=== PATIENT | female | born 1940 | race Caucasian/White ===

== ENCOUNTER 2024-06-06 07:50 | Inpatient (IN) ==
[2024-06-06 09:48] LABS: BASOPHILS # (AUTO) 0.1 X10^3/uL (0.0-0.1); BASOPHILS % (AUTO) 0.7 % (0.2-1.0); EOSINOPHILS # (AUTO) 0.1 x10^3/uL (0.0-0.2); EOSINOPHILS % (AUTO) 1.1 % (0.9-2.9); HEMATOCRIT 40.8 % (36.0-47.0); HEMOGLOBIN 13.6 g/dL (12.0-16.0); LYMPHOCYTES # (AUTO) 2.9 X10^3/uL (1.3-2.9); LYMPHOCYTES % (AUTO) 30.3 % (21.0-51.0); MEAN CORPUSCULAR HEMOGLOBIN 32.5 pg (27.0-34.0); MEAN CORPUSCULAR HGB CONC 33.3 g/dL (33.0-35.0); MEAN CORPUSCULAR VOLUME 97.5 fL (80.0-100.0); MEAN PLATELET VOLUME 9.2 fL (7.4-11.0); MONOCYTES # (AUTO) 0.6 x10^3/uL (0.3-0.8); MONOCYTES % (AUTO) 6.1 % (0.0-13.0); NEUTROPHILS # (AUTO) 5.9 x10^3/uL (2.2-4.8); NEUTROPHILS % (AUTO) 61.8 % (42.0-75.0); PLATELET COUNT 161 X10^3/uL (150.0-450.0); RED BLOOD COUNT 4.18 X10^6/uL (3.5-5.4); RED CELL DISTRIBUTION WIDTH 13.7 % (11.6-16.5); WHITE BLOOD COUNT 9.5 X10^3/uL (3.6-10.0)
[2024-06-06 09:59] LABS: ALANINE AMINOTRANSFERASE 21 Units/L (12-78); ALBUMIN 2.9 g/dL (3.4-5.0); ALKALINE PHOSPHATASE 71 Units/L (46-116); ASPARTATE AMINO TRANSFERASE 15 Units/L (15-37); BLOOD UREA NITROGEN 18 mg/dL (7-18); CALCIUM 8.5 mg/dL (8.5-10.1); CARBON DIOXIDE 22.8 mmol/L (21-32); CHLORIDE 103 mmol/L (98-107); COR CA(FOR HYPOALB) 9.4 mg/dL (8.5-10.1); COR NA(FOR HYPERGLY) 136 mmol/L (136-145); CREATININE 0.57 mg/dL (0.55-1.02); GLUCOSE 124 mg/dL (65-99); POTASSIUM 3.5 mmol/L (3.5-5.1); SODIUM 135 mmol/L (136-145); eGFR NON BLACK RACES > 60 (>60)
[2024-06-06] MEDS ORDERED: VOLTAREN 1 % GEL MULTI DOSE TUBE TOP PRN (10:44)
[2024-06-06] MEDS ORDERED: ILOTYCIN OPHTH OINT AFFEYE PRN (10:50)
[2024-06-06] MEDS ORDERED: ZOFRAN TAB 4 MG PO PRN (10:55)
[2024-06-06] MEDS: REGLAN TAB 5 MG PO SCH (12:19)
[2024-06-06] MEDS: LR 1,000 ML IV 1,000 ML IV SCH (12:47)
--- NOTE | 2024-06-06 13:15 | DR.H&P ---
H&P History & Physical for Day of: H&P Date: 06/06/24 Chief Complaint Chief Complaint: increasing pain botjh legs at rest with non - healing wound to the right 2nd toe , multiple pain medications tried for pain but only IV narcotics help with the pain. History of Present Illness History of Present Illness: 84 year old female currently resides at a [facility] facility who has severe ischemia of both extremities and non - heali g wound to the right second toe that has failed intensive wound care therapy including antibiotics antibiotics and alginate type dressings which supplanted wound care dressings with wet to dry dressings previously as well as Betadine dressings . Patient admitted for evaluation and probable urgent intervention of arterial blood flow both legs . Past Medical History Past Medical History: CVA (TIAs actually), Depression, Diabetes and Renal Disease Additional Medical History: Hx of breast cancer, Hx of stomach cancer and both have had surgery Past Surgical History Surgical History: Abdominal Surgery and Mastectomy Family History Family Medical History: Diabetes Mellitus and Cancer Social History Does patient currently use any type of tobacco product: No Have you used tobacco products in the last 12 months: No Type of Tobacco Use: None Alcohol Use: None Drug Use: None Medications Home Medications: Home Medications Medication Instructions Recorded Confirmed Type ascorbic acid (vitamin C) 500 mg 500 mg PO QDAY 06/06/24 06/06/24 History tablet (Vitamin C) atorvastatin 80 mg tablet 80 mg PO QDAY 06/06/24 06/06/24 History carvedilol 6.25 mg tablet 6.25 mg PO BID 06/06/24 06/06/24 History cholecalciferol (vitamin D3) 1,250 1,250 mcg PO QWEEK 06/06/24 06/06/24 History mcg (50,000 unit) capsule cyanocobalamin (vitamin B-12) 1,000 mcg subcut QWEEK 06/06/24 06/06/24 History 1,000 mcg/mL injection kit diclofenac sodium 1 % topical gel 4 g topical QID 06/06/24 06/06/24 History donepezil 10 mg tablet 10 mg PO QDAY 06/06/24 06/06/24 History duloxetine 20 mg capsule,delayed 20 mg PO QDAY 06/06/24 06/06/24 History release erythromycin 5 mg/gram (0.5 %) eye 1 applic ophthalmic (eye) HS PRN 06/06/24 06/06/24 History ointment hordeolum famotidine 20 mg tablet 20 mg PO QDAY 06/06/24 06/06/24 History ferrous sulfate 325 mg (65 mg 325 mg PO BID 06/06/24 06/06/24 History iron) tablet guaifenesin 100 mg/5 mL oral syrup 200 mg PO Q6H 06/06/24 06/06/24 History hydrocodone 5 mg-acetaminophen 325 1 tab PO TID PRN 06/06/24 06/06/24 History mg tablet insulin lispro 100 unit/mL See Rx Instructions .Route .COMPLEX 06/06/24 06/06/24 History subcutaneous pen (Humalog KwikPen (U-100) Insulin) lorazepam 0.5 mg tablet 0.5 mg PO QDAY 06/06/24 06/06/24 History megestrol 40 mg tablet 40 mg PO BID 06/06/24 06/06/24 History metformin 1,000 mg tablet 1,000 mg PO BID 06/06/24 06/06/24 History methenamine hippurate 1 gram tablet 1 g PO BID 06/06/24 06/06/24 History metoclopramide HCl 5 mg tablet 5 mg PO TID 06/06/24 06/06/24 History mv-mn-folic 200 mcg-vit K 15 1 cap PO DAILY 06/06/24 06/06/24 History mcg-lutein 5 mg-zeaxanthin 1 mg capsule (PreserVision AREDS 2 Plus Multivit) ondansetron HCl 4 mg tablet 4 mg PO Q8H PRN 06/06/24 06/06/24 History potassium chloride 10 mEq 10 meq PO QDAY 06/06/24 06/06/24 History tablet,extended release(part/cryst) ropinirole 0.25 mg tablet 0.25 mg PO QDAY 06/06/24 06/06/24 History topiramate 200 mg tablet 200 mg PO BID 06/06/24 06/06/24 History zinc 50 mg tablet 50 mg PO QDAY 06/06/24 06/06/24 History Allergies Allergies Allergy/AdvReac Type Severity Reaction Status Date / Time ciprofloxacin [Cipro] Allergy Unknown Verified 03/07/22 13:15 coconut Allergy Unknown Verified 06/06/24 12:28 gatifloxacin [Tequin] Allergy Unknown Verified 03/07/22 13:15 lettuce Allergy Unknown Verified 06/06/24 12:28 levofloxacin [Levaquin] Allergy Unknown Verified 03/07/22 13:15 onion Allergy Unknown Verified 06/06/24 12:28 pineapple Allergy Unknown Verified 06/06/24 12:28 strawberry Allergy Unknown Verified 03/07/22 13:16 Labs 06/06/24 09:30 06/06/24 09:30 Labs: Laboratory WBC 9.5 X10^3/uL (3.6-10.0) 06/06/24 09:30 RBC 4.18 X10^6/uL (3.5-5.4) 06/06/24 09:30 Hgb 13.6 g/dL (12.0-16.0) 06/06/24 09:30 Hct 40.8 % (36.0-47.0) 06/06/24 09:30 MCV 97.5 fL (80.0-100.0) 06/06/24 09:30 MCH 32.5 pg (27.0-34.0) 06/06/24 09:30 MCHC 33.3 g/dL (33.0-35.0) 06/06/24 09:30 RDW 13.7 % (11.6-16.5) 06/06/24 09:30 Plt Count 161 X10^3/uL (150.0-450.0) 06/06/24 09:30 MPV 9.2 fL (7.4-11.0) 06/06/24 09:30 Neut % (Auto) 61.8 % (42.0-75.0) 06/06/24 09:30 Lymph % (Auto) 30.3 % (21.0-51.0) 06/06/24 09:30 [place] % (Auto) 6.1 % (0.0-13.0) 06/06/24 09:30 Eos % (Auto) 1.1 % (0.9-2.9) 06/06/24 09:30 Baso % (Auto) 0.7 % (0.2-1.0) 06/06/24 09:30 Neut # (Auto) 5.9 x10^3/uL (2.2-4.8) H 06/06/24 09:30 Lymph # (Auto) 2.9 X10^3/uL (1.3-2.9) 06/06/24 09:30 [place] # (Auto) 0.6 x10^3/uL (0.3-0.8) 06/06/24 09:30 Eos # (Auto) 0.1 x10^3/uL (0.0-0.2) 06/06/24 09:30 Baso # (Auto) 0.1 X10^3/uL (0.0-0.1) 06/06/24 09:30 Absolute Nucleated RBC 0.1 /100WBC 06/06/24 09:30 Sodium 135 mmol/L (136-145) L 06/06/24 09:30 Corrected Sodium 136 mmol/L (136-145) 06/06/24 09:30 Potassium 3.5 mmol/L (3.5-5.1) 06/06/24 09:30 Chloride 103 mmol/L (98-107) 06/06/24 09:30 Carbon Dioxide 22.8 mmol/L (21-32) 06/06/24 09:30 BUN 18 mg/dL (7-18) 06/06/24 09:30 Creatinine 0.57 mg/dL (0.55-1.02) 06/06/24 09:30 Est GFR (MDRD) Af Amer > 60 (>60) 06/06/24 09:30 Est GFR (MDRD) Non-Af > 60 (>60) 06/06/24 09:30 Glucose 124 mg/dL (65-99) H 06/06/24 09:30 POC Glucose (mg/dL) 110 mg/dL (65-99) H 06/06/24 12:37 Calcium 8.5 mg/dL (8.5-10.1) 06/06/24 09:30 Corrected Calcium 9.4 mg/dL (8.5-10.1) 06/06/24 09:30 Total Bilirubin 0.50 mg/dL (0.2-1.0) 06/06/24 09:30 AST 15 Units/L (15-37) 06/06/24 09:30 ALT 21 Units/L (12-78) 06/06/24 09:30 Alkaline Phosphatase 71 Units/L (46-116) 10/21/24 09:30 Total Protein 6.0 g/dL (6.4-8.2) L 06/06/24 09:30 Albumin 2.9 g/dL (3.4-5.0) L 06/06/24 09:30 Globulin 3.1 g/dL (2.5-4.5) 06/06/24 09:30 Albumin/Globulin Ratio 0.9 Ratio (1.1-2.1) L 06/06/24 09:30 Review of Systems Constitutional: See HPI Eyes: Other (dry eyes ) ENT: No Symptoms Reported Respiratory: No Symptoms Reported Cardiovascular: No Symptoms Reported and See HPI Gastrointestinal: See HPI Genitourinary: No Symptoms Reported Musculoskeletal: No Symptoms Reported Skin: See HPI Neurological: No Symptoms Reported Physical Exam Vital Signs: Vital Signs Temperature 97.4 F Pulse Rate [Left Radial] 62 Respiratory Rate 18 Blood Pressure [Right Arm] 172/73 O2 Sat by Pulse Oximetry 100 Oriented: Person and Other (patient is bed bound , family does not want this to end with amputqtion) Eyes: Normal Ear: Normal Nose: Normal Throat: Normal Respiratory: Clear Throughout Cardiovascular: Normal and Other (2 plus femoral pulses by palpation absent pulses both ankles ) : Normal Palpation: Normal and Other (healed midline incision ) Tenderness: Normal Skin: Normal Musculoskeletal: Normal Psychiatric: Anxiety Mood Description: Calm Affect: Anxious Speech Pattern: Appropriate and Delayed Assessment/Plan (1) 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
[2024-06-06] MEDS: OMNIPAQUE 350 mg/mL 100 mL BTL 100 ML ONE (14:14)
[2024-06-06] MEDS: VITAMIN B-12 INJ IM STA (14:15)
[2024-06-06] MEDS: OMNIPAQUE 350 mg/mL 50 mL BTL 50 ML ONE (14:15)
--- NOTE | 2024-06-06 17:03 | CT ---
EXAM: CTA AORTA WITH RUNOFF HISTORY: non healing wound rt foot ; COMPARISON: None. TECHNIQUE: Initially nonenhanced spiral CT imaging was performed through the abdomen, pelvis, and down to the fe et. Following the intravenous administration of iodinated contrast, spiral CT imaging was performed through the abdomen, pelvis, and bilateral lower extremities and axial, coronal, and sagittal CT imag es were generated. Multi planar 3D MIP images were also generated. FINDINGS: Noncontrast images: There are large nonobstructing stones in both kidneys measuring up to 1.4 cm bila terally. There is severe systemic atherosclerosis. Minimal basilar atelectasis. Heart size is enlarged. The liver is grossly unremarkable. The gallbl adder has been removed. Pancreas is somewhat atrophic. The spleen is normal. There is a left adren al adenoma measuring 2.1 cm in diameter. The renal parenchyma enhances normally. There is no renal mass or hydronephrosis. The urinary bladder is grossly normal. There is a nonobstructing stone in t he right side of the urinary bladder. The uterus has been removed. There is no adnexal mass. The s tomach and small bowel loops are normal. The appendix is not identified. There is no evidence for a ppendicitis. The large bowel is unremarkable. Angiography: There is atherosclerosis in the abdominal aorta but no aneurysm or dissection. There is narrowing at the origin of the celiac trunk and there appears to be poststenotic dilation. The degr ee of stenosis is between 50 and 70%. There is some degree of stenosis of the origin of the SMA. Th ere is unspecified stenosis at the origin of the renal artery bilaterally. There is plaque in the co mmon iliac arteries bilaterally but no flow-limiting stenosis. There is soft plaque in the internal iliac arteries. There is no flow-limiting stenosis in the external iliac arteries. There is heterog eneous plaque in the common femoral artery bilaterally. Right leg: There is diffuse atherosclerosis in the superficial and deep femoral arteries and this dif fuse atherosclerosis extends through the popliteal artery in the anterior tibial artery, tibioperonea l trunk, posterior tibial artery, and peroneal artery. On the postcontrast images there is no defini tive enhancement seen beyond the mid superficial femoral artery. There was a 2nd delayed series from the popliteal artery distally which shows some enhancement in the popliteal artery and none distal t o the popliteal artery. Left leg: There is diffuse atherosclerosis in the left leg similar to the right leg. On the postcont rast images there is no flow seen beyond the mid SFA on the initial post-contrast scan. On the delay ed postcontrast scan there is blood flow in the popliteal artery but no definite flow into the proxim al calf vessels. IMPRESSION: 1. Very weak perfusion pressure into the bilateral lower extremities with no definitive enhancement s een below the popliteal artery. 2. 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 THIS IS AN ELECTRONICALLY VERIFIED FINAL REPORT 06/06/2024 4:59 PM - Electronically signed by Shawn Alcantara MD
[2024-06-06] MEDS: NovoLIN R (or HumuLIN R) SUBCUT PRN (20:23)
[2024-06-06] MEDS: SNACK - Diabetic Appropriate PO SCH (20:24)
[2024-06-06] MEDS: TOPAMAX TAB 100 MG PO SCH (20:25)
[2024-06-06] MEDS: REQUIP PO SCH (20:25)
[2024-06-06] MEDS: ARICEPT TAB 10 MG PO SCH (20:26)
[2024-06-06] MEDS: COREG TAB 6.25 MG PO SCH (20:26)
[2024-06-06] MEDS: MEGACE PO SCH (20:41)
[2024-06-06] MEDS: HIPREX PO SCH (20:49)
--- NOTE | 2024-06-06 23:20 | NOTE.SOAP ---
Soap Note Note for Day of Date of Exam: 06/06/24 Subjective Data Subjective Data: See H& P CTA shows no flow below popliteal arteries b/l . Objective Data Temperature: 98.9 F Pulse Rate: 82 Respiratory Rate: 18 Blood Pressure: 131/66 O2 Sat by Pulse Oximetry: 95 Objective Data: both feet cool to touch, no palpable distal pulses either ankle 1.2x 1.2 x 0.2 cm non- healing wound right second toe dorsal surface . Assessment Assessment: b/l critical ischemia of legs Plan Plan: Aortogram, arteriogram right leg and possible atherectomy, possible angioplasty and possible stenting of arteries right leg. Obtain EKG and portable CXR pre-op
[2024-06-06] MEDS: PERCOCET TAB 5/325 MG PO PRN (23:30)
[2024-06-07] MEDS: HIBICLENS WASH EXT ONE (04:01)
--- NOTE | 2024-06-07 05:32 | RAD ---
EXAM:FRONTAL VIEW CHEST X-RAYHISTORY:Preoperative chest x-rayCOMPARISON:None.FINDINGS:Cervical fusion hardware is noted.Clips along the left axilla are seen which may be from prior lymph node dissection.No focal consolidation is seen.The heart size is within normal limits.The mediastinum is unremarkable.There is no evidence of pleural effusion or gross pneumothorax.The trachea is midline.IMPRESSION:No focal consolidation is seen.The heart size is normal.THIS IS AN ELECTRONICALLY VERIFIED FINAL [id number]/2024 5:28 AM - Electronically signed by Александр Mccarthy MD
--- NOTE | 2024-06-07 06:54 | EKG ---
Test Reason : SURGERY Blood Pressure : */* mmHG Vent. Rate : 66 BPM Atrial Rate : 66 BPM P-R Int : 178 ms QRS Dur : 96 ms QT Int : 450 ms P-R-T Axes : 72 -15 89 degrees QTc Int : 471 ms Normal sinus rhythm Septal infarct , age undetermined Nonspecific ST and T wave abnormality Abnormal ECG No previous ECGs available Confirmed by Ed Smith MD ([id number]) on 06/07/2024 7:30:08 AM Referred By: Confirmed By: Ed Smith MD
[2024-06-07] MEDS: DIPRIVAN VIAL 20 ML ONE (09:09)
[2024-06-07] MEDS: KETAMINE 50 MG/5 ML-NACL SYRNG ONE (09:10)
[2024-06-07] MEDS: PEPCID 20 MG VIAL ONE (09:10)
[2024-06-07] MEDS: VERSED ONE (09:10)
[2024-06-07] MEDS: HEPARIN SODIUM INJ 5000 UNITS ONE (09:10)
[2024-06-07] MEDS: ZOFRAN INJ 4 MG VIAL ONE (09:10)
[2024-06-07] MEDS: LIPITOR TAB 80 MG PO SCH (09:11)
[2024-06-07] MEDS: VITAMIN D3 125 mcg (5,000 UNITS) PO SCH (09:11)
[2024-06-07] MEDS: PROTONIX TAB 40 MG PO SCH (09:11)
[2024-06-07] MEDS: ATIVAN TAB 0.5 MG PO SCH (09:11)
[2024-06-07] MEDS: CYMBALTA PO SCH (09:12)
[2024-06-07] MEDS: KLOR-CON 10 MEQ TAB PO SCH (09:12)
[2024-06-07] MEDS: HEMOCYTE-PLUS PO SCH (09:13)
[2024-06-07] MEDS: VITAMIN C PO SCH (09:13)
[2024-06-07] MEDS: HEPARIN SODIUM IN D5W 75,000 UNITS/1,500 ML BAG ONE (13:05)
[2024-06-07] MEDS: MARCAINE 0.5% ONE (13:05)
[2024-06-07] MEDS: NS 1,000 ML IV 1,000 ML ONE (13:06)
[2024-06-07] MEDS: NS 100 ML IV 100 ML ONE (13:15)
[2024-06-07] MEDS: ANCEF VIAL 1 GRAM ONE (13:15)
[2024-06-07] MEDS ORDERED: PRECEDEX INJ VIAL ONE (13:24)
[2024-06-07] MEDS: VISIPAQUE 50 ML ONE (13:45)
[2024-06-07] MEDS: VISIPAQUE 100 ML ONE (13:45)
--- NOTE | 2024-06-07 14:45 | OR.IMMED ---
IMMEDIATE POST-OP NOTE Immediate Post-Op Note Date of surgery/procedure: 06/07/24 Pre-Op Diagnosis: critical ischemia right leg with non - healing wound right second toe. Post-Op Diagnosis: same Procedure: Diagnostic aortogram, diagnostic arteriogram right leg, balloon angioplasty of the right peroneal artery, drug-coated balloon angioplasty of the right tibial peroneal trunk Description of Procedure: dictated Surgeon/Public Relations Consultant: Rowena Findings: occluded right anterior tibial artery with reconstitution, severe disease right tibial peroneal trunk, severe disease peroneal and posterior tibial arteries Estimated Blood Loss: < 100 cc Complications: none Progress Notes: to floor. Resume diet. begin Xarelto and aspirin
[2024-06-07] MEDS ORDERED: PHARMACY CONSULT LTC MEDICATIONS XX SCH (17:00)
[2024-06-08 04:12] VITALS: BMI 20.4
[2024-06-08 05:03] LABS: BLOOD UREA NITROGEN 11 mg/dL (7-18); CALCIUM 8.5 mg/dL (8.5-10.1); CARBON DIOXIDE 25.6 mmol/L (21-32); CHLORIDE 103 mmol/L (98-107); CREATININE 0.54 mg/dL (0.55-1.02); GLUCOSE 90 mg/dL (65-99); POTASSIUM 3.2 mmol/L (3.5-5.1); SODIUM 137 mmol/L (136-145); eGFR NON BLACK RACES > 60 (>60)
[2024-06-08] MEDS ORDERED: CONSULT PHARMACY - POTASSIUM & MAGNESIUM XX SCH (06:00)
[2024-06-08] MEDS: NS IV ONE (08:43)
[2024-06-08] MEDS: POTASSIUM CHLORIDE IV ONE (08:43)
[2024-06-08] MEDS ORDERED: KLOR-CON PO SCH (09:00)
--- NOTE | 2024-06-08 11:17 | W.DIS.FURT ---
Summary of Discharge Discharge Summary of Date Date of Exam: 06/08/24 Admission Date Date of Admission: 06/06/24 Admission Diagnosis Hospital Course: This patient is a 84 year old female, [facility] Who has non-healing wound over the right second toe. She has had studies consistent with ischemia and was admitted for CT angiogram and intervention as transportation is an issue because of her mobility. She was admitted and underwent CT angiogram and the next day was taken to the operating suite where she underwent balloon angioplasty of the right peroneal artery and Drug coated balloon angioplasty to the right tibial peroneal trunk. Should be noted her anterior tibial artery was occluded. Once the peroneal artery was dilated she had cross filling into the posterior tibial artery and post-procedure had significant biphasci dopler signal in the posterior tibial artery . The wound over the left second toe is 1 cm by 0.4 by 0.1 cm and according to the family is improving. Patient to be [facility] today and I will see here and follow up in 2 weeks. If the wound does not heal will refer her back to Podiatry. 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 Vital Signs: Vital Signs (72 hours) 06/06/24 23:20 06/06/24 08:45 06/06/24 08:03 Temperature 98.9 F Pulse Rate 82 Pulse Rate [Left Radial] Respiratory Rate 18 Blood Pressure 131/66 Blood Pressure [Right Arm] O2 Sat by Pulse Oximetry 95 Oxygen Delivery Method Room Air Room Air Oxygen Flow Rate FIO2% 06/06/24 11:22 06/06/24 08:05 06/06/24 16:00 Temperature 97.4 F L 97.6 F 97.6 F Pulse Rate Pulse Rate [Left Radial] 62 58 L 79 Respiratory Rate 18 20 20 Blood Pressure Blood Pressure [Right Arm] 172/73 143/65 137/73 O2 Sat by Pulse Oximetry 100 98 95 Oxygen Delivery Method Room Air Room Air Room Air Oxygen Flow Rate FIO2% 06/06/24 19:00 06/06/24 20:00 06/06/24 23:30 Temperature 98.9 F Pulse Rate Pulse Rate [Left Radial] 82 Respiratory Rate 18 18 Blood Pressure Blood Pressure [Right Arm] 131/66 O2 Sat by Pulse Oximetry 95 Oxygen Delivery Method Room Air Room Air Oxygen Flow Rate FIO2% 06/07/24 00:00 06/07/24 00:30 06/07/24 04:00 Temperature 98.2 F 97.9 F Pulse Rate Pulse Rate [Left Radial] 78 65 Respiratory Rate 18 16 18 Blood Pressure Blood Pressure [Right Arm] 144/70 155/70 O2 Sat by Pulse Oximetry 97 99 Oxygen Delivery Method Room Air Room Air Oxygen Flow Rate FIO2% 06/07/24 08:00 06/07/24 07:00 06/07/24 12:00 Temperature 97.5 F L 98.3 F Pulse Rate Pulse Rate [Left Radial] 64 67 Respiratory Rate 20 18 Blood Pressure Blood Pressure [Right Arm] 159/74 170/73 O2 Sat by Pulse Oximetry 99 100 Oxygen Delivery Method Room Air Room Air Room Air Oxygen Flow Rate FIO2% 06/07/24 13:19 06/07/24 16:00 06/07/24 14:45 Temperature 98.2 F 98.4 F Pulse Rate 75 Pulse Rate [Left Radial] 57 L 62 Respiratory Rate 18 16 16 Blood Pressure 177/82 Blood Pressure [Right Arm] 145/67 111/55 O2 Sat by Pulse Oximetry 95 100 100 Oxygen Delivery Method Nasal Cannula Room Air Room Air Oxygen Flow Rate FIO2% 06/07/24 15:00 06/07/24 15:15 06/07/24 15:30 Temperature 98.4 F 98.5 F 98.0 F Pulse Rate Pulse Rate [Left Radial] 54 L 58 L 59 L Respiratory Rate 16 16 18 Blood Pressure Blood Pressure [Right Arm] 109/58 147/66 142/65 O2 Sat by Pulse Oximetry 99 100 100 Oxygen Delivery Method Room Air Room Air Room Air Oxygen Flow Rate FIO2% 06/07/24 15:45 06/07/24 16:45 06/07/24 17:45 Temperature 98.2 F 98.2 F 98.2 F Pulse Rate Pulse Rate [Left Radial] 57 L 62 60 Respiratory Rate 16 16 16 Blood Pressure Blood Pressure [Right Arm] 145/67 148/68 159/70 O2 Sat by Pulse Oximetry 100 100 100 Oxygen Delivery Method Room Air Room Air Room Air Oxygen Flow Rate FIO2% 06/07/24 18:45 06/07/24 19:00 06/07/24 19:46 Temperature 97.2 F L 97.7 F Pulse Rate Pulse Rate [Left Radial] 65 60 Respiratory Rate 18 18 Blood Pressure Blood Pressure [Right Arm] 159/72 153/64 O2 Sat by Pulse Oximetry 100 100 Oxygen Delivery Method Room Air Room Air Room Air Oxygen Flow Rate FIO2% 06/07/24 20:34 06/07/24 20:00 06/08/24 00:00 Temperature 98.2 F 98.1 F Pulse Rate Pulse Rate [Left Radial] 76 58 L Respiratory Rate 20 16 19 Blood Pressure Blood Pressure [Right Arm] 162/94 134/64 O2 Sat by Pulse Oximetry 98 99 Oxygen Delivery Method Room Air Room Air Oxygen Flow Rate FIO2% 06/07/24 21:34 06/08/24 04:00 06/08/24 07:50 Temperature 98.0 F 97.4 F L Pulse Rate Pulse Rate [Left Radial] 62 61 Respiratory Rate 20 19 18 Blood Pressure Blood Pressure [Right Arm] 159/72 140/70 O2 Sat by Pulse Oximetry 98 98 Oxygen Delivery Method Room Air Room Air Oxygen Flow Rate FIO2% 06/08/24 07:00 06/08/24 09:42 Temperature Pulse Rate Pulse Rate [Left Radial] Respiratory Rate Blood Pressure Blood Pressure [Right Arm] O2 Sat by Pulse Oximetry Oxygen Delivery Method Room Air Room Air Oxygen Flow Rate 2 FIO2% 28 Labs: Laboratory Last Values WBC 9.5 X10^3/uL (3.6-10.0) 06/06/24 09:30 RBC 4.18 X10^6/uL (3.5-5.4) 06/06/24 09:30 Hgb 13.6 g/dL (12.0-16.0) 06/06/24 09:30 Hct 40.8 % (36.0-47.0) 06/06/24 09:30 MCV 97.5 fL (80.0-100.0) 06/06/24 09:30 MCH 32.5 pg (27.0-34.0) 06/06/24 09:30 MCHC 33.3 g/dL (33.0-35.0) 06/06/24 09:30 RDW 13.7 % (11.6-16.5) 06/06/24 09:30 Plt Count 161 X10^3/uL (150.0-450.0) 06/06/24 09:30 MPV 9.2 fL (7.4-11.0) 06/06/24 09:30 Neut % (Auto) 61.8 % (42.0-75.0) 06/06/24 09:30 Lymph % (Auto) 30.3 % (21.0-51.0) 06/06/24 09:30 [place] % (Auto) 6.1 % (0.0-13.0) 06/06/24 09:30 Eos % (Auto) 1.1 % (0.9-2.9) 06/06/24 09:30 Baso % (Auto) 0.7 % (0.2-1.0) 06/06/24 09:30 Neut # (Auto) 5.9 x10^3/uL (2.2-4.8) H 06/06/24 09:30 Lymph # (Auto) 2.9 X10^3/uL (1.3-2.9) 06/06/24 09:30 [place] # (Auto) 0.6 x10^3/uL (0.3-0.8) 06/06/24 09:30 Eos # (Auto) 0.1 x10^3/uL (0.0-0.2) 06/06/24 09:30 Baso # (Auto) 0.1 X10^3/uL (0.0-0.1) 06/06/24 09:30 Absolute Nucleated RBC 0.1 /100WBC 06/06/24 09:30 Sodium 137 mmol/L (136-145) 06/08/24 04:20 Corrected Sodium TNP 06/08/24 04:20 Potassium 3.2 mmol/L (3.5-5.1) L 06/08/24 04:20 Chloride 103 mmol/L (98-107) 06/08/24 04:20 Carbon Dioxide 25.6 mmol/L (21-32) 06/08/24 04:20 BUN 11 mg/dL (7-18) 06/08/24 04:20 Creatinine 0.54 mg/dL (0.55-1.02) L 06/08/24 04:20 Est GFR (MDRD) Af Amer > 60 (>60) 06/08/24 04:20 Est GFR (MDRD) Non-Af > 60 (>60) 06/08/24 04:20 Glucose 90 mg/dL (65-99) 06/08/24 04:20 POC Glucose (mg/dL) 241 mg/dL (65-99) H 06/08/24 10:46 Calcium 8.5 mg/dL (8.5-10.1) 06/08/24 04:20 Corrected Calcium 9.4 mg/dL (8.5-10.1) 06/06/24 09:30 Total Bilirubin 0.50 mg/dL (0.2-1.0) 06/06/24 09:30 AST 15 Units/L (15-37) 06/06/24 09:30 ALT 21 Units/L (12-78) 06/06/24 09:30 Alkaline Phosphatase 71 Units/L (46-116) 06/06/24 09:30 Total Protein 6.0 g/dL (6.4-8.2) L 06/06/24 09:30 Albumin 2.9 g/dL (3.4-5.0) L 06/06/24 09:30 Globulin 3.1 g/dL (2.5-4.5) 06/06/24 09:30 Albumin/Globulin Ratio 0.9 Ratio (1.1-2.1) L 06/06/24 09:30 Reason For Visit: ATHEROSCLEROSIS OF [place] ARTERIES WITH REST PAIN, Discharge Diagnosis All Active Problems (Updated 06/06/24 @ 13:12 by Bryan Guaman) Gastroparesis (Acute) Anxiety (Acute) Personal history of malignant neoplasm of stomach (Acute) Personal history of breast cancer (Acute) Type 2 diabetes mellitus without complications (Acute) Atherosclerosis of [place] arteries of extremities with rest pain, left leg (Acute) Atherosclerosis of [place] arteries of extremities with rest pain, right leg (Acute) Plan of Treatment: Continue with present treatment and follow up plan. Pt is to keep follow up appointment as instructed and take medications as ordered. Discharge Medications Discharge Medications: ciprofloxacin [Cipro] Allergy (Unknown, Verified 03/07/22 13:15) coconut Allergy (Unknown, Verified 06/06/24 12:28) gatifloxacin [Tequin] Allergy (Unknown, Verified 03/07/22 13:15) lettuce Allergy (Unknown, Verified 06/06/24 12:28) levofloxacin [Levaquin] Allergy (Unknown, Verified 03/07/22 13:15) onion Allergy (Unknown, Verified 06/06/24 12:28) pineapple Allergy (Unknown, Verified 06/06/24 12:28) strawberry Allergy (Unknown, Verified 03/07/22 13:16) CONTINUE taking the following medications ascorbic acid (vitamin C) 500 mg tablet (Vitamin C) 500 mg PO QDAY 06/06/24 [History] atorvastatin 80 mg tablet 80 mg PO QDAY 06/06/24 [History] carvedilol 6.25 mg tablet 6.25 mg PO BID 06/06/24 [History] cholecalciferol (vitamin D3) 1,250 mcg (50,000 unit) capsule 1,250 mcg PO QWEEK 06/06/24 [History] cyanocobalamin (vitamin B-12) 1,000 mcg/mL injection kit 1,000 mcg subcut QWEEK 06/06/24 [History] diclofenac sodium 1 % topical gel 4 g topical QID 06/06/24 [History] donepezil 10 mg tablet 10 mg PO QDAY 06/06/24 [History] duloxetine 20 mg capsule,delayed release 20 mg PO QDAY 06/06/24 [History] erythromycin 5 mg/gram (0.5 %) eye ointment 1 applic ophthalmic (eye) HS PRN hordeolum 06/06/24 [History] famotidine 20 mg tablet 20 mg PO QDAY 06/06/24 [History] ferrous sulfate 325 mg (65 mg iron) tablet 325 mg PO BID 06/06/24 [History] guaifenesin 100 mg/5 mL oral syrup 200 mg PO Q6H 06/06/24 [History] hydrocodone 5 mg-acetaminophen 325 mg tablet 1 tab PO TID PRN 06/06/24 [History] insulin lispro 100 unit/mL subcutaneous pen (Humalog KwikPen (U-100) Insulin) See Rx Instructions .Route .COMPLEX 06/06/24 [History] lorazepam 0.5 mg tablet 0.5 mg PO QDAY 06/06/24 [History] megestrol 40 mg tablet 40 mg PO BID 06/06/24 [History] metformin 1,000 mg tablet 1,000 mg PO BID 06/06/24 [History] methenamine hippurate 1 gram tablet 1 g PO BID 06/06/24 [History] metoclopramide HCl 5 mg tablet 5 mg PO TID 06/06/24 [History] mv-mn-folic 200 mcg-vit K 15 mcg-lutein 5 mg-zeaxanthin 1 mg capsule (PreserVision AREDS 2 Plus Multivit) 1 cap PO DAILY 06/06/24 [History] ondansetron HCl 4 mg tablet 4 mg PO Q8H PRN 06/06/24 [History] potassium chloride 10 mEq tablet,extended release(part/cryst) 10 meq PO QDAY 06/06/24 [History] ropinirole 0.25 mg tablet 0.25 mg PO QDAY 06/06/24 [History] topiramate 200 mg tablet 200 mg PO BID 06/06/24 [History] zinc 50 mg tablet 50 mg PO QDAY 06/06/24 [History] Discharge Disposition Assessment: see hospital course Discharge Plan Discharge Plan Hospital Course: This patient is a 84 year old female, [facility] Who has non-healing wound over the right second toe. She has had studies consistent with ischemia and was admitted for CT angiogram and intervention as transport ation is an issue because of her mobility. She was admitted and underwent CT angiogram and the next day was taken to the operating suite where she underwent balloon angioplasty of the right peroneal artery and Drug coated balloon angioplasty to the right tibial peroneal trunk. Should be noted her anterior tibial artery was occluded. Once the peroneal artery was dilated she had cross filling into the posterior tibial artery and post-procedure had significant biphasci dopler signal in the posterior tibial artery . The wound over the left second toe is 1 cm by 0.4 by 0.1 cm and according to the family is improving. Patient to be [facility] to [facility] today and I will see here and follow up in 2 weeks. If the wound does not heal will refer her back to Podiatry. 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 Patient Disposition: 03 XFER SN[facility] Condition: Stable Health Concerns: Post Hospitalization: new medications and changes needed to prevent readmission or further decline. Pt educated and given instructions on all concerns. Care Plan Goals: Problem: Pain/Alteration in Comfort Goal: Improve/ Resolve Pain; Achieve Pain Tolerance Instructions: Take pain medications as prescribed. Contact your primary care provider if your pain is unrelieved or worsens. Follow up with primary care provider as directed. Plan of Treatment: Continue with present treatment and follow up plan. Pt is to keep follow up appointment as instructed and take medications as ordered. Assessment: see hospital course Prescription drug monitoring program results: PDMP was not reviewed Prescriptions: No Action atorvastatin 80 mg tablet 80 mg PO QDAY carvedilol 6.25 mg tablet 6.25 mg PO BID hydrocodone-acetaminophen 5-325 mg tablet 1 tab PO TID PRN donepezil 10 mg tablet 10 mg PO QDAY ondansetron HCl 4 mg tablet 4 mg PO Q8H PRN famotidine 20 mg tablet 20 mg PO QDAY lorazepam 0.5 mg tablet 0.5 mg PO QDAY metoclopramide HCl 5 mg tablet 5 mg PO TID ropinirole 0.25 mg tablet 0.25 mg PO QDAY erythromycin 5 mg/gram (0.5 %) ointment 1 applic OPHTHALMIC (EYE) HS PRN (Reason: hordeolum) Patient Comments: [NO ORIGINAL SIG] metformin 1,000 mg tablet 1,000 mg PO BID megestrol 40 mg tablet 40 mg PO BID topiramate 200 mg tablet 200 mg PO BID insulin lispro [Humalog KwikPen Insulin] 100 unit/mL insulin pen See Rx Instructions .ROUTE .COMPLEX Patient Comments: [NO ORIGINAL SIG] Rx Instructions: Inject as per sliding scale : if 0-59 = 0 responsive=give instaglucose tabs or gel; unresponsive=Glucagen IM. Notify .; 60-180 = 0 181-220 = 4 221-260 = 6 261-300 = 8 301-350 = 10 351-400 = 12 401-1000 = 12; Notifprice [place] subcutaneously four time a day for DM duloxetine 20 mg capsule,delayed release(DR/EC) 20 mg PO QDAY methenamine hippurate 1 gram tablet 1 g PO BID ascorbic acid (vitamin C) [Vitamin C] 500 mg Tablet 500 mg PO QDAY ferrous sulfate 325 mg (65 mg iron) Tablet 325 mg PO BID zinc 50 mg Tablet 50 mg PO QDAY guaifenesin 100 mg/5 mL Syrup 200 mg PO Q6H potassium chloride 10 mEq tablet,ER particles/crystals 10 meq PO QDAY cholecalciferol (vitamin D3) 1,250 mcg (50,000 unit) Capsule 1,250 mcg PO QWEEK Rx Instructions: EVERY THURSDAY diclofenac sodium [Voltaren] 1 % Gel 4 g TOPICAL QID Rx Instructions: apply to BILATERAL KNEES cyanocobalamin (vitamin B-12) 1,000 mcg/mL Kit 1,000 mcg SUBCUT QWEEK Rx Instructions: ON THURSDAY PreserVision AREDS 2 Plus MV 200 mcg-15 mcg- 5 mg-1 mg Capsule 1 cap PO DAILY Orders to Discharge Patient Discharge Orders: Discharge (Routine); Ordered 06/08/24 Ordered By: Bryan Guaman Follow ups/Referrals Follow ups/Referrals: Bryan Guaman [STAFF PHYSICIAN] - 06/22/24 3:30 pm Instructions Instructions: Endovascular Therapy for Peripheral Vascular Disease: What to Know After Stand Alone Forms: Excuse From Work or School, Post Hospital Follow Up Care
[2024-06-08 11:42] VITALS: RESP 19
[2024-06-08 15:44] VITALS: BP 133/63; PULSE 73; TEMP 98.1; O2SAT 98
--- NOTE | 2024-06-08 23:38 | DR.OPNOTE ---
OP NOTE Pre-Op Diagnosis: critical ischemia right leg with non-healing wound right second toe Post-Op Diagnosis: same Procedure Date Date Of Procedure: 06/07/24 Procedure: PROCEDURE: DIAGNOSTIC AORTOGRAM, DIAGNOSTIC ARTERIOGRAM RIGHT LEG , ANGIOPLASTY RIGHT PERONEAL ARTERY, DRUG COATED BALLOON ANGIOPLASTY RIGHT TIBIAL PERONEAL TRUNK NARRATIVE : The patient was taken to the operative suite and placed in the supine position. The left groin and entire right leg were prepped and draped in sterile fashion. The patient was given intravenous sedation supervised by myself. Time out for the procedure obtained. Ultrasound used to identify the left femoral artery and the skin overlying it infiltrated with 0.5% Marcaine. Ultrasound then used to guide puncture of the left femoral artery and a 0.012 inch guide wire was placed. Incision made over the guide wire at the skin edge with a # 11 knife blade and a micro sheath placed over the guide wire into the left femoral artery. The small guidewire exchanged for a 0.035 inch Advantage glide wire and the micro sheath exchanged for a 5 Fr vascular sheath. Patient given 5000 units of intravenous heparin. Omni catheter was placed over the guide wire into the aorta and diagnostic aortogram carried out with the power injector showing normal aorta and iliac arteries . Omni catheter was used to steer the guide wire down the right common iliac artery to the distal right external iliac artery . Omni catheter was exchanged for a [place] catheter and sequential arteriograms carried out of the right lower extremity showing occluded right anterior tibial artery, severe disease of the right peroneal and posterior tibial arteries. The 5 Fr sheath in the left groin then exchanged for a 7 Fr destination sheath which was parked in the distal right superficial femoral artery. [place] catheter and the guide wire were used to traverse the arteries of the right leg ultimately ending in the right peroneal artery . This was selective catheterization. 0.035 inch wire removed and exchanged for a 0.014 inch wire. Over this wire we placed a Baljinder 2x 220 mm angioplasty balloon . At this point we performed balloon dilatation of the right peroneal artery.We removed this balloon and then placed a 4 mm by 100 millimeter [employer] [place] drug coated balloon over the wire and positioned it over the area of the right tibial peroneal trunk and balloon dilated it for 3 minutes. 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 All wires and devices removed. The 7 Fr sheath was pulled back into the aorta and a 0.035 inch wire placed. The destination sheath exchanged for an Angioseal device used to close the puncture of the left femoral artery. .Dressing applied to the left groin. The patient taken to same day surgery in good condition. Type of Anesthesia: Local (0.5% Marcaine ) Anesthesia Comment: plis MAC Findings: severe disease all right leg trifurcation arteries , severe disease right tibial peroneal trunk Type of Fluids Used:: Lactated Ringers Total Amount of Fluid Infused:: 400 cc Urine output: 100 cc EBL: 100 cc Complications:: none Needle/Sponge Count:: correct Disposition/Condition: Pt. tolerated procedure without difficulty. Taken to CCU in stable condition.
[2024-06-10] MEDS ORDERED: VITAMIN B-12 INJ IM SCH (12:53)
== END 2024-06-08 17:05 | DRG 254 ==
LOC: MED/SURG → OBSVTOIN 07:54
PROVIDERS: ADMIT Surgery; ATTEND Surgery
DX: X58.XXXA Exposure to other specified factors, initial encounter; Z01.810 Encounter for preprocedural cardiovascular examination; Z85.3 Personal history of malignant neoplasm of breast; E11.65 Type 2 diabetes mellitus with hyperglycemia; Z85.028 Personal history of other malignant neoplasm of stomach; S30.91XA Unspecified superficial injury of lower back and pelvis, initial encounter; K31.84 Gastroparesis; F41.8 Other specified anxiety disorders; I70.223 Atherosclerosis of native arteries of extremities with rest pain, bilateral legs; R94.31 Abnormal electrocardiogram [ECG] [EKG]

== ENCOUNTER 2024-06-20 15:51 | Inpatient (IN) ==
[2024-06-20] MEDS ORDERED: DILAUDID INJ ONE (18:02)
[2024-06-20] MEDS ORDERED: LR 1,000 ML IV 1,000 ML IV ONE (18:02)
[2024-06-20 18:09] LABS: BASOPHILS # (AUTO) 0.1 X10^3/uL (0.0-0.1); BASOPHILS % (AUTO) 0.5 % (0.2-1.0); EOSINOPHILS % (AUTO) 0.1 % (0.9-2.9); HEMATOCRIT 35.6 % (36.0-47.0); HEMOGLOBIN 12.3 g/dL (12.0-16.0); LYMPHOCYTES # (AUTO) 2.3 X10^3/uL (1.3-2.9); MEAN CORPUSCULAR HEMOGLOBIN 33.2 pg (27.0-34.0); MEAN CORPUSCULAR HGB CONC 34.5 g/dL (33.0-35.0); MEAN CORPUSCULAR VOLUME 96.2 fL (80.0-100.0); MEAN PLATELET VOLUME 8.6 fL (7.4-11.0); MONOCYTES # (AUTO) 0.7 x10^3/uL (0.3-0.8); MONOCYTES % (AUTO) 6.8 % (0.0-13.0); NEUTROPHILS # (AUTO) 6.9 x10^3/uL (2.2-4.8); NEUTROPHILS % (AUTO) 69.6 % (42.0-75.0); PLATELET COUNT 211 X10^3/uL (150.0-450.0); WHITE BLOOD COUNT 9.9 X10^3/uL (3.6-10.0)
[2024-06-20] MEDS: DILAUDID INJ IVP PRN (18:09)
[2024-06-20] MEDS: LR 1,000 ML IV 1,000 ML IV SCH (18:09)
[2024-06-20 18:29] LABS: ALANINE AMINOTRANSFERASE 17 Units/L (12-78); ALBUMIN 2.4 g/dL (3.4-5.0); ALKALINE PHOSPHATASE 110 Units/L (46-116); ASPARTATE AMINO TRANSFERASE 14 Units/L (15-37); BLOOD UREA NITROGEN 19 mg/dL (7-18); CALCIUM 8.5 mg/dL (8.5-10.1); CARBON DIOXIDE 20.5 mmol/L (21-32); CHLORIDE 102 mmol/L (98-107); COR CA(FOR HYPOALB) 9.8 mg/dL (8.5-10.1); COR NA(FOR HYPERGLY) 140 mmol/L (136-145); GLUCOSE 310 mg/dL (65-99); POTASSIUM 3.6 mmol/L (3.5-5.1); SODIUM 135 mmol/L (136-145); eGFR NON BLACK RACES > 60 (>60)
[2024-06-20 23:06] VITALS: BMI 20.2
[2024-06-20] MEDS ORDERED: ZOFRAN TAB 4 MG PO PRN (23:37)
--- NOTE | 2024-06-20 23:49 | DR.H&P ---
H&P History & Physical for Day of: H&P Date: 06/20/24 Chief Complaint Chief Complaint: Cold right leg History of Present Illness History of Present Illness: 84 year old female resident of [facility] Who was seen last week for ischemic right leg and not healing wound to the right second toe. At that time she underwent angioplasty at the right peroneal artery with cross filling of the distal posterior tibial artery and also drug coated balloon angioplasty of the right tibial peroneal trunk. She has been back at the [facility] on Xarelto and aspirin but I was called today that her right foot was now cold. Past Medical History Past Medical History: CVA (TIAs actually), Depression, Diabetes and Renal Disease Additional Medical History: Hx of breast cancer, Hx of stomach cancer and both have had surgery Past Surgical History Surgical History: Abdominal Surgery and Mastectomy Family History Family Medical History: Diabetes Mellitus and Cancer Social History Does any household member use tobacco: No Alcohol Use: None Medications Home Medications: Home Medications Medication Instructions Recorded Confirmed Type ascorbic acid (vitamin C) 500 mg 500 mg PO QDAY 06/06/24 06/20/24 History tablet (Vitamin C) atorvastatin 80 mg tablet 80 mg PO QDAY 06/06/24 06/20/24 History carvedilol 6.25 mg tablet 6.25 mg PO BID 06/06/24 06/20/24 History cholecalciferol (vitamin D3) 1,250 1,250 mcg PO QWEEK 06/06/24 06/20/24 History mcg (50,000 unit) capsule cyanocobalamin (vitamin B-12) 1,000 mcg subcut QWEEK 06/06/24 06/20/24 History 1,000 mcg/mL injection kit diclofenac sodium 1 % topical gel 4 g topical QID 06/06/24 06/06/24 History donepezil 10 mg tablet 10 mg PO QDAY 06/06/24 06/20/24 History duloxetine 20 mg capsule,delayed 20 mg PO QDAY 06/06/24 06/20/24 History release erythromycin 5 mg/gram (0.5 %) eye 1 applic ophthalmic (eye) HS PRN 06/06/24 06/06/24 History ointment hordeolum famotidine 20 mg tablet 20 mg PO QDAY 06/06/24 06/20/24 History ferrous sulfate 325 mg (65 mg 325 mg PO BID 06/06/24 06/20/24 History iron) tablet guaifenesin 100 mg/5 mL oral syrup 200 mg PO Q6H 06/06/24 06/20/24 History hydrocodone 5 mg-acetaminophen 325 1 tab PO TID PRN 06/06/24 06/20/24 History mg tablet insulin lispro 100 unit/mL See Rx Instructions .Route .COMPLEX 06/06/24 06/06/24 History subcutaneous pen (Humalog KwikPen (U-100) Insulin) lorazepam 0.5 mg tablet 0.5 mg PO QDAY 06/06/24 06/20/24 History megestrol 40 mg tablet 40 mg PO BID 06/06/24 06/20/24 History metformin 1,000 mg tablet 1,000 mg PO BID 06/06/24 06/20/24 History methenamine hippurate 1 gram tablet 1 g PO BID 06/06/24 06/20/24 History metoclopramide HCl 5 mg tablet 5 mg PO TID 06/06/24 06/20/24 History mv-mn-folic 200 mcg-vit K 15 1 cap PO DAILY 06/06/24 06/06/24 History mcg-lutein 5 mg-zeaxanthin 1 mg capsule (PreserVision AREDS 2 Plus Multivit) ondansetron HCl 4 mg tablet 4 mg PO Q8H PRN 06/06/24 06/20/24 History potassium chloride 10 mEq 10 meq PO QDAY 06/06/24 06/20/24 History tablet,extended release(part/cryst) ropinirole 0.25 mg tablet 0.25 mg PO QDAY 06/06/24 06/06/24 History topiramate 200 mg tablet 200 mg PO BID 06/06/24 06/20/24 History zinc 50 mg tablet 50 mg PO QDAY 06/06/24 06/06/24 History Allergies Allergies Allergy/AdvReac Type Severity Reaction Status Date / Time ciprofloxacin [Cipro] Allergy Unknown Verified 03/07/22 13:15 coconut Allergy Unknown Verified 06/06/24 12:28 gatifloxacin [Tequin] Allergy Unknown Verified 03/07/22 13:15 lettuce Allergy Unknown Verified 06/06/24 12:28 levofloxacin [Levaquin] Allergy Unknown Verified 03/07/22 13:15 onion Allergy Unknown Verified 06/06/24 12:28 pineapple Allergy Unknown Verified 06/06/24 12:28 strawberry Allergy Unknown Verified 03/07/22 13:16 Labs 06/20/24 18:00 06/20/24 18:00 Labs: Laboratory WBC 9.9 X10^3/uL (3.6-10.0) 06/20/24 18:00 RBC 3.70 X10^6/uL (3.5-5.4) 06/20/24 18:00 Hgb 12.3 g/dL (12.0-16.0) 06/20/24 18:00 Hct 35.6 % (36.0-47.0) L 06/20/24 18:00 MCV 96.2 fL (80.0-100.0) 06/20/24 18:00 MCH 33.2 pg (27.0-34.0) 06/20/24 18:00 MCHC 34.5 g/dL (33.0-35.0) 06/20/24 18:00 RDW 14.0 % (11.6-16.5) 06/20/24 18:00 Plt Count 211 X10^3/uL (150.0-450.0) 06/20/24 18:00 MPV 8.6 fL (7.4-11.0) 06/20/24 18:00 Neut % (Auto) 69.6 % (42.0-75.0) 06/20/24 18:00 Lymph % (Auto) 23.0 % (21.0-51.0) 06/20/24 18:00 [place] % (Auto) 6.8 % (0.0-13.0) 06/20/24 18:00 Eos % (Auto) 0.1 % (0.9-2.9) L 06/20/24 18:00 Baso % (Auto) 0.5 % (0.2-1.0) 06/20/24 18:00 Neut # (Auto) 6.9 x10^3/uL (2.2-4.8) H 06/20/24 18:00 Lymph # (Auto) 2.3 X10^3/uL (1.3-2.9) 06/20/24 18:00 [place] # (Auto) 0.7 x10^3/uL (0.3-0.8) 06/20/24 18:00 Eos # (Auto) 0.0 x10^3/uL (0.0-0.2) 06/20/24 18:00 Baso # (Auto) 0.1 X10^3/uL (0.0-0.1) 06/20/24 18:00 Absolute Nucleated RBC 0.0 /100WBC 06/20/24 18:00 Sodium 135 mmol/L (136-145) L 06/20/24 18:00 Corrected Sodium 140 mmol/L (136-145) 06/20/24 18:00 Potassium 3.6 mmol/L (3.5-5.1) 06/20/24 18:00 Chloride 102 mmol/L (98-107) 06/20/24 18:00 Carbon Dioxide 20.5 mmol/L (21-32) L 06/20/24 18:00 BUN 19 mg/dL (7-18) H 06/20/24 18:00 Creatinine 0.70 mg/dL (0.55-1.02) 06/20/24 18:00 Est GFR (MDRD) Af Amer > 60 (>60) 06/20/24 18:00 Est GFR (MDRD) Non-Af > 60 (>60) 06/20/24 18:00 Glucose 310 mg/dL (65-99) H 06/20/24 18:00 Calcium 8.5 mg/dL (8.5-10.1) 06/20/24 18:00 Corrected Calcium 9.8 mg/dL (8.5-10.1) 06/20/24 18:00 Total Bilirubin 0.40 mg/dL (0.2-1.0) 06/20/24 18:00 AST 14 Units/L (15-37) L 06/20/24 18:00 ALT 17 Units/L (12-78) 06/20/24 18:00 Alkaline Phosphatase 110 Units/L (46-116) 06/20/24 18:00 Total Protein 6.0 g/dL (6.4-8.2) L 06/20/24 18:00 Albumin 2.4 g/dL (3.4-5.0) L 06/20/24 18:00 Globulin 3.6 g/dL (2.5-4.5) 06/20/24 18:00 Albumin/Globulin Ratio 0.7 Ratio (1.1-2.1) L 06/20/24 18:00 Review of Systems Constitutional: See HPI Eyes: No Symptoms Reported ENT: No Symptoms Reported Respiratory: No Symptoms Reported Cardiovascular: See HPI Gastrointestinal: Other (History of stomach cancer ) Genitourinary: No Symptoms Reported Musculoskeletal: Other (patient does not ambulate. ) Skin: See HPI Neurological: Other (Patient does not communicate. family has wanted everything to be done so she does not have an amputation ) Physical Exam Vital Signs: Vital Signs Temperature 98.3 F Temperature 99.0 F Temperature 100.0 F Pulse Rate 74 Pulse Rate 77 Pulse Rate 77 Pulse Rate 73 Pulse Rate 77 Pulse Rate 86 Pulse Rate 90 Pulse Rate 91 Pulse Rate 86 Pulse Rate 80 Respiratory Rate 12 Respiratory Rate 12 Respiratory Rate 18 Respiratory Rate 14 Respiratory Rate 18 Respiratory Rate 24 Respiratory Rate 18 Respiratory Rate 30 Respiratory Rate 17 Respiratory Rate 40 Respiratory Rate 31 Respiratory Rate 25 Respiratory Rate 30 Respiratory Rate 23 Blood Pressure 115/56 Blood Pressure 119/60 Blood Pressure 143/65 Blood Pressure 150/68 Blood Pressure 144/70 Blood Pressure 167/87 Blood Pressure 150/70 O2 Sat by Pulse Oximetry 98 O2 Sat by Pulse Oximetry 98 O2 Sat by Pulse Oximetry 100 O2 Sat by Pulse Oximetry 99 O2 Sat by Pulse Oximetry 99 O2 Sat by Pulse Oximetry 99 O2 Sat by Pulse Oximetry 99 O2 Sat by Pulse Oximetry 99 O2 Sat by Pulse Oximetry 99 O2 Sat by Pulse Oximetry 98 Oriented: Place; negative Normal, Time or Person Eyes: Normal Ear: Normal Nose: Normal Throat: Normal Respiratory: Clear Throughout Cardiovascular: Normal and Other (cold right foot with no palpable distal pulses. left foot warm but no palpable distal pulses which is not unchanged ) : Normal Auscultation: Bowel Sounds: Normal Palpation: Normal Tenderness: Normal Skin: Normal Musculoskeletal: Normal (right foot in extension which is permanent ) Psychiatric: Other (patient does not communicate ) Assessment/Plan (1) Atherosclerosis of [place] arteries of extremities with rest pain, left leg: Status: Acute Plan: we had planned intervention of this in the future that will still happen most likely. (2) Atherosclerosis of [place] arteries of extremities with rest pain, right leg: Status: Acute Plan: Intervention of right leg has failed with worsening of the ischemia right leg. Will obtain CT angiogram. (3) Type 2 diabetes mellitus without complications: Status: Acute Plan: Sliding scale insulin (4) Personal history of breast cancer: Status: Acute (5) Personal history of malignant neoplasm of stomach: Status: Acute (6) Anxiety: Status: Acute
[2024-06-21] MEDS: LOVENOX INJ 80 MG SYR SC SCH (00:19)
--- NOTE | 2024-06-21 00:45 | CT ---
EXAM:CTA AORTA WITH RUNOFFHISTORY:CRITICAL ISCHEMIA TO RIGHT LOWER EXTREMITY;COMPARISON:Abnormal CTA aorta with runoff study 06/06/2024TECHNIQUE:Multiple axial images of the abdomen and pelvis were obtained from the mesenteric vasculature to the plantar surface of the feet both prior to and after the administration of IV contrast. 3D reconstructions were performed utilizing radial maximum intensity projection imaging. Dose reduction techniques including Automated Exposure Control (AEC) and adjustment of mA and kV were utilized.FINDINGS:The exam is limited due to extensive motion artifact particularly involving the patient's left leg.The visualized portions of the solid organs are unremarkable in their CT appearance. Post cholecystectomy changes. No significant mesenteric lymphadenopathy or stranding can be observed. No free fluid or free air is seen within the abdomen. No bowel wall thickening or bowel dilatation is present . The colon is unremarkable. Specifically, there is no diverticulosis noted within the sigmoid colon. The urinary bladder is grossly unremarkable. The bony structures are grossly intact.Infrarenal abdominal aorta: Mild atherosclerotic calcification within the infrarenal abdominal aorta without aneurysm or dissection. There is moderate atherosclerotic narrowing of the celiac axis and superior mesenteric arteries. The JARAD is patent.Common iliac arteries: PatentExternal iliac arteries: PatentCommon femoral arteries: PatentSuperficial femoral arteries: There is extensive atherosclerotic calcific plaque involving the right superficial femoral artery. There is no enhancement of the distal right superficial femoral artery and popliteal artery consistent with occlusion. The left superficial femoral artery exhibits atherosclerotic calcification and is limited by patient motion. The SFA and popliteal arteries appear patent.Popliteal arteries: Right popliteal artery occluded; the left popliteal artery is patent.Tibial vasculature: Right tibial vasculature occluded, the left appears patent.IMPRESSION:Limited CTA aorta with runoff secondary to patient motion.Moderate atherosclerotic narrowing of the celiac axis and superior mesenteric artery origins.Extensive atherosclerotic calcific plaque involving the right superficial femoral artery with absent enhancement of the distal right SFA and popliteal arteries as well as the tibial vasculature consistent with occlusionAtherosclerotic calcification involving the left superficial femoral artery which is limited due to patient motion. The left SFA, popliteal and tibial vasculature enhance indicative of some degree of flow.THIS IS AN ELECTRONICALLY VERIFIED FINAL [id number]/21/2024 12:41 AM - Electronically signed by Luis Antonio Allen MD
[2024-06-21] MEDS: OMNIPAQUE 350 mg/mL 100 mL BTL 100 ML ONE (07:07)
[2024-06-21] MEDS: OMNIPAQUE 350 mg/mL 50 mL BTL 50 ML ONE (07:07)
[2024-06-21] MEDS: OMNIPAQUE 350 mg/mL 100 mL BTL 0 ML ONE (07:07)
[2024-06-21] MEDS: OMNIPAQUE 350 MG/ML ONE (07:07)
[2024-06-21] MEDS: NS 100 ML IV 100 ML ONE (07:07)
[2024-06-21] MEDS: COREG TAB 6.25 MG PO SCH (08:59)
[2024-06-21] MEDS: TOPAMAX TAB 100 MG PO SCH (09:00)
[2024-06-21] MEDS: CYMBALTA PO SCH (09:00)
[2024-06-21] MEDS: PROTONIX TAB 40 MG PO SCH (09:00)
[2024-06-21] MEDS: APRESOLINE INJ 20 MG VIAL IVP ONE (14:26)
--- NOTE | 2024-06-21 15:16 | EKG ---
Test Reason : htn protocol Blood Pressure : */* mmHG Vent. Rate : 84 BPM Atrial Rate : 84 BPM P-R Int : 138 ms QRS Dur : 98 ms QT Int : 418 ms P-R-T Axes : 88 -39 83 degrees QTc Int : 493 ms Sinus rhythm with marked sinus arrhythmia Left axis deviation Minimal voltage criteria for LVH, may be normal variant ( Kenny product ) Anteroseptal infarct (cited on or before 07-JUN-2024) Abnormal ECG When compared with ECG of 07-JUN-2024 06:38, Questionable change in initial forces of Anterior leads ST elevation now present in Anterior leads Nonspecific T wave abnormality, improved in Lateral leads Confirmed by Ed Smith MD ([id number]) on 06/22/2024 7:36:14 AM Referred By: Confirmed By: Ed Smith MD
[2024-06-21] MEDS: SNACK - Diabetic Appropriate PO SCH (20:05)
[2024-06-21] MEDS: LIPITOR TAB 80 MG PO SCH (20:31)
[2024-06-21] MEDS: ARICEPT TAB 10 MG PO SCH (20:31)
[2024-06-21] MEDS: REQUIP PO SCH (20:31)
--- NOTE | 2024-06-21 22:28 | NOTE.SOAP ---
Soap Note Note for Day of Date of Exam: 06/21/24 Subjective Data Subjective Data: Patient unchanged, Right foot is still cool tomtouch Objective Data Temperature: 98.4 F Pulse Rate: 84 Respiratory Rate: 13 Blood Pressure: 105/51 O2 Sat by Pulse Oximetry: 98 Objective Data: As above , CTA shows occlusion of the right SFA and popliteal arteries with possible occluded runoff rigjht leg as well. Left SFA with significant stenosis. Assessment Assessment: critical limb threatening ischemia right leg Plan Plan: Continue Lovenox Plan arterial intervention of the right leg on 06/23/2024
[2024-06-22] MEDS: NovoLIN R (or HumuLIN R) SUBCUT PRN (05:45)
[2024-06-22] MEDS: HIBICLENS WASH EXT ONE (22:28)
[2024-06-23 05:47] LABS: WHITE BLOOD COUNT 9.3 X10^3/uL (3.6-10.0)
[2024-06-23] MEDS: NOZIN NASAL SANITIZER TP ONE (05:47)
[2024-06-23 05:53] LABS: BASOPHILS # (AUTO) 0.1 X10^3/uL (0.0-0.1); BASOPHILS % (AUTO) 0.6 % (0.2-1.0); EOSINOPHILS % (AUTO) 0.5 % (0.9-2.9); HEMATOCRIT 32.5 % (36.0-47.0); HEMOGLOBIN 11.4 g/dL (12.0-16.0); LYMPHOCYTES # (AUTO) 2.1 X10^3/uL (1.3-2.9); MEAN CORPUSCULAR HEMOGLOBIN 33.6 pg (27.0-34.0); MEAN CORPUSCULAR HGB CONC 35.1 g/dL (33.0-35.0); MEAN CORPUSCULAR VOLUME 95.7 fL (80.0-100.0); MEAN PLATELET VOLUME 9.5 fL (7.4-11.0); MONOCYTES # (AUTO) 0.7 x10^3/uL (0.3-0.8); MONOCYTES % (AUTO) 7.5 % (0.0-13.0); NEUTROPHILS # (AUTO) 6.5 x10^3/uL (2.2-4.8); NEUTROPHILS % (AUTO) 69.4 % (42.0-75.0); PLATELET COUNT 208 X10^3/uL (150.0-450.0); RED CELL DISTRIBUTION WIDTH 13.7 % (11.6-16.5)
[2024-06-23 06:05] LABS: ALANINE AMINOTRANSFERASE 18 Units/L (12-78); ALBUMIN 2.1 g/dL (3.4-5.0); ALKALINE PHOSPHATASE 79 Units/L (46-116); ASPARTATE AMINO TRANSFERASE 21 Units/L (15-37); BLOOD UREA NITROGEN 9 mg/dL (7-18); CALCIUM 8.3 mg/dL (8.5-10.1); CHLORIDE 103 mmol/L (98-107); COR CA(FOR HYPOALB) 9.8 mg/dL (8.5-10.1); COR NA(FOR HYPERGLY) 138 mmol/L (136-145); CREATININE 0.43 mg/dL (0.55-1.02); GLUCOSE 150 mg/dL (65-99); POTASSIUM 3.1 mmol/L (3.5-5.1); SODIUM 137 mmol/L (136-145); TOTAL PROTEIN 5.8 g/dL (6.4-8.2); eGFR NON BLACK RACES > 60 (>60)
[2024-06-23] MEDS ORDERED: CONSULT PHARMACY - POTASSIUM & MAGNESIUM XX SCH (07:00)
--- NOTE | 2024-06-23 07:58 | NOTE.SOAP ---
Soap Note Note for Day of Date of Exam: 06/22/24 Subjective Data Subjective Data: patient without gomez ge Objective Data Temperature: 98.4 F Pulse Rate: 69 Respiratory Rate: 21 Blood Pressure: 106/51 O2 Sat by Pulse Oximetry: 97 Objective Data: right foot still cool to the touch no palpable pulses Assessment Assessment: critical ischemia right leg Plan Plan: for arterial intervention right leg tomorrow
[2024-06-23] MEDS: NS 500 ML IV 500 ML with POTASSIUM CHLORIDE INJ 40 MEQ VIAL 40 MEQ, MAGNESIUM SULFATE 5... IV NR (08:15)
[2024-06-23] MEDS: FENTANYL VIAL INJ 100 mcg ONE (08:37)
[2024-06-23] MEDS: PEPCID 20 MG VIAL ONE (08:37)
[2024-06-23] MEDS: DIPRIVAN VIAL 20 ML ONE (08:37)
[2024-06-23] MEDS: VERSED ONE (08:37)
[2024-06-23] MEDS: ZOFRAN INJ 4 MG VIAL ONE (08:37)
[2024-06-23] MEDS: NS 1,000 ML IV 1,000 ML ONE (08:43)
[2024-06-23] MEDS ORDERED: K-DUR TAB 20 MEQ PO SCH (09:00)
[2024-06-23] MEDS: ANCEF VIAL 1 GRAM ONE (09:20)
[2024-06-23] MEDS: NS 100 ML IV 100 ML ONE (09:20)
[2024-06-23] MEDS ORDERED: KETAMINE HCL ONE (09:25)
[2024-06-23] MEDS ORDERED: PRECEDEX INJ VIAL ONE (09:25)
[2024-06-23] MEDS ORDERED: XYLOCAINE 2 % (PLAIN) ONE (09:25)
[2024-06-23] MEDS: VISIPAQUE 50 ML ONE (09:45)
[2024-06-23] MEDS: VISIPAQUE 100 ML ONE (09:45)
[2024-06-23] MEDS: MARCAINE 0.5% ONE (09:50)
[2024-06-23] MEDS: HEPARIN SODIUM IN D5W 75,000 UNITS/1,500 ML BAG ONE (09:50)
[2024-06-23] MEDS: HEPARIN SODIUM INJ 5000 UNITS ONE (09:51)
[2024-06-23] MEDS: ACTIVASE CATHFLO ONE (10:09)
[2024-06-23] MEDS: NS 1,000 ML IV 2,000 ML ONE (10:14)
[2024-06-23] MEDS: ACTIVASE CATHFLO 12 MG in NS 250 ML IV 228 ML IV SCH (10:30)
--- NOTE | 2024-06-23 10:37 | OR.IMMED ---
IMMEDIATE POST-OP NOTE Immediate Post-Op Note Date of surgery/procedure: 06/23/24 Pre-Op Diagnosis: critical ischemia right leg Post-Op Diagnosis: Thrombosis of mid right superficial femoral artery and all vessels below that to the ankle Procedure: diagnostic your orgram, diagnostic arteriogram right leg, placement of EKOS thrombolytic catheter with Selective catheterization to the ankle Description of Procedure: see dictation Surgeon/Automotive Services Manager: Rowena Findings: as above Estimated Blood Loss: < 50 cc Complications: none Progress Notes: 2 ICU. thrombolysis overnight, return tomorrow for archigram and definitive treatment
[2024-06-23] MEDS: ACTIVASE CATHFLO 12 MG in NS 250 ML IV 228 ML INTRACATH ONE (10:38)
[2024-06-23] MEDS ORDERED: PHARMACY CONSULT EKOS LOVENOX XX SCH (11:00)
[2024-06-23 11:33] LABS: BASOPHILS % (AUTO) 0.5 % (0.2-1.0); EOSINOPHILS % (AUTO) 0.3 % (0.9-2.9); HEMATOCRIT 32.7 % (36.0-47.0); HEMOGLOBIN 11.3 g/dL (12.0-16.0); LYMPHOCYTES % (AUTO) 26.3 % (21.0-51.0); MEAN CORPUSCULAR HEMOGLOBIN 33.4 pg (27.0-34.0); MEAN CORPUSCULAR HGB CONC 34.7 g/dL (33.0-35.0); MEAN CORPUSCULAR VOLUME 96.5 fL (80.0-100.0); MEAN PLATELET VOLUME 9.2 fL (7.4-11.0); MONOCYTES # (AUTO) 0.5 x10^3/uL (0.3-0.8); NEUTROPHILS # (AUTO) 5.2 x10^3/uL (2.2-4.8); NEUTROPHILS % (AUTO) 66.9 % (42.0-75.0); PLATELET COUNT 175 X10^3/uL (150.0-450.0); RED BLOOD COUNT 3.39 X10^6/uL (3.5-5.4); RED CELL DISTRIBUTION WIDTH 13.9 % (11.6-16.5); WHITE BLOOD COUNT 7.8 X10^3/uL (3.6-10.0)
[2024-06-23] MEDS: NS 500 ML IV 500 ML IV SCH (12:07)
[2024-06-23] MEDS: LOVENOX INJ 60 MG SYR SC SCH (12:54)
[2024-06-23] MEDS: ATIVAN TAB 0.5 MG PO PRN (13:24)
[2024-06-23] MEDS: LR 1,000 ML IV 1,000 ML with MAGNESIUM SULFATE 50% INJ VIAL 1 G IV SCH (17:22)
[2024-06-23 17:25] LABS: BASOPHILS # (AUTO) 0.1 X10^3/uL (0.0-0.1); BASOPHILS % (AUTO) 0.7 % (0.2-1.0); EOSINOPHILS % (AUTO) 0.1 % (0.9-2.9); HEMATOCRIT 34.9 % (36.0-47.0); HEMOGLOBIN 11.7 g/dL (12.0-16.0); LYMPHOCYTES # (AUTO) 1.4 X10^3/uL (1.3-2.9); LYMPHOCYTES % (AUTO) 12.3 % (21.0-51.0); MEAN CORPUSCULAR HEMOGLOBIN 32.7 pg (27.0-34.0); MEAN CORPUSCULAR HGB CONC 33.7 g/dL (33.0-35.0); MEAN PLATELET VOLUME 8.7 fL (7.4-11.0); MONOCYTES # (AUTO) 0.7 x10^3/uL (0.3-0.8); MONOCYTES % (AUTO) 5.6 % (0.0-13.0); NEUTROPHILS # (AUTO) 9.5 x10^3/uL (2.2-4.8); NEUTROPHILS % (AUTO) 81.3 % (42.0-75.0); PLATELET COUNT 206 X10^3/uL (150.0-450.0); WHITE BLOOD COUNT 11.7 X10^3/uL (3.6-10.0)
[2024-06-23 23:03] LABS: BASOPHILS % (AUTO) 0.3 % (0.2-1.0); EOSINOPHILS % (AUTO) 0.1 % (0.9-2.9); HEMATOCRIT 32.7 % (36.0-47.0); HEMOGLOBIN 11.2 g/dL (12.0-16.0); LYMPHOCYTES % (AUTO) 9.7 % (21.0-51.0); MEAN CORPUSCULAR HGB CONC 34.1 g/dL (33.0-35.0); MEAN CORPUSCULAR VOLUME 96.9 fL (80.0-100.0); MEAN PLATELET VOLUME 8.4 fL (7.4-11.0); MONOCYTES # (AUTO) 0.6 x10^3/uL (0.3-0.8); MONOCYTES % (AUTO) 6.2 % (0.0-13.0); NEUTROPHILS # (AUTO) 8.6 x10^3/uL (2.2-4.8); NEUTROPHILS % (AUTO) 83.7 % (42.0-75.0); PLATELET COUNT 204 X10^3/uL (150.0-450.0); RED BLOOD COUNT 3.38 X10^6/uL (3.5-5.4); RED CELL DISTRIBUTION WIDTH 13.8 % (11.6-16.5); WHITE BLOOD COUNT 10.2 X10^3/uL (3.6-10.0)
[2024-06-24 05:32] LABS: BASOPHILS # (AUTO) 0.1 X10^3/uL (0.0-0.1); BASOPHILS % (AUTO) 0.6 % (0.2-1.0); EOSINOPHILS % (AUTO) 0.1 % (0.9-2.9); HEMATOCRIT 32.5 % (36.0-47.0); HEMOGLOBIN 11.3 g/dL (12.0-16.0); LYMPHOCYTES # (AUTO) 1.6 X10^3/uL (1.3-2.9); LYMPHOCYTES % (AUTO) 17.7 % (21.0-51.0); MEAN CORPUSCULAR HEMOGLOBIN 33.6 pg (27.0-34.0); MEAN CORPUSCULAR HGB CONC 34.8 g/dL (33.0-35.0); MEAN CORPUSCULAR VOLUME 96.5 fL (80.0-100.0); MONOCYTES # (AUTO) 0.7 x10^3/uL (0.3-0.8); MONOCYTES % (AUTO) 7.1 % (0.0-13.0); NEUTROPHILS # (AUTO) 6.8 x10^3/uL (2.2-4.8); NEUTROPHILS % (AUTO) 74.5 % (42.0-75.0); PLATELET COUNT 200 X10^3/uL (150.0-450.0); RED BLOOD COUNT 3.37 X10^6/uL (3.5-5.4); RED CELL DISTRIBUTION WIDTH 14.1 % (11.6-16.5); WHITE BLOOD COUNT 9.2 X10^3/uL (3.6-10.0)
[2024-06-24 05:42] LABS: MAGNESIUM 2.1 mg/dL (2.0-2.9); POTASSIUM 3.5 mmol/L (3.5-5.1)
[2024-06-24] MEDS: CONSULT PHARMACY - POTASSIUM & MAGNESIUM XX SCH (07:43)
[2024-06-24] MEDS: ACTIVASE CATHFLO 12 MG in NS 250 ML IV 228 ML INTRACATH ONE (07:44)
[2024-06-24 11:23] LABS: BASOPHILS # (AUTO) 0.1 X10^3/uL (0.0-0.1); BASOPHILS % (AUTO) 1.2 % (0.2-1.0); EOSINOPHILS % (AUTO) 0.1 % (0.9-2.9); HEMATOCRIT 31.1 % (36.0-47.0); HEMOGLOBIN 10.8 g/dL (12.0-16.0); LYMPHOCYTES # (AUTO) 1.3 X10^3/uL (1.3-2.9); LYMPHOCYTES % (AUTO) 13.8 % (21.0-51.0); MEAN CORPUSCULAR HEMOGLOBIN 33.6 pg (27.0-34.0); MEAN CORPUSCULAR HGB CONC 34.8 g/dL (33.0-35.0); MEAN CORPUSCULAR VOLUME 96.7 fL (80.0-100.0); MEAN PLATELET VOLUME 8.5 fL (7.4-11.0); MONOCYTES # (AUTO) 0.5 x10^3/uL (0.3-0.8); MONOCYTES % (AUTO) 5.4 % (0.0-13.0); NEUTROPHILS # (AUTO) 7.5 x10^3/uL (2.2-4.8); NEUTROPHILS % (AUTO) 79.5 % (42.0-75.0); PLATELET COUNT 206 X10^3/uL (150.0-450.0); RED BLOOD COUNT 3.21 X10^6/uL (3.5-5.4); RED CELL DISTRIBUTION WIDTH 13.7 % (11.6-16.5); WHITE BLOOD COUNT 9.4 X10^3/uL (3.6-10.0)
[2024-06-24] MEDS: NS 1,000 ML IV 1,000 ML ONE (12:52)
[2024-06-24] MEDS ORDERED: KETAMINE HCL ONE (13:29)
[2024-06-24] MEDS: ANCEF VIAL 1 GRAM ONE (13:29)
[2024-06-24] MEDS: DIPRIVAN VIAL 20 ML ONE (13:29)
[2024-06-24] MEDS: NS 100 ML IV 100 ML ONE (13:29)
[2024-06-24] MEDS: VERSED ONE (13:29)
[2024-06-24] MEDS: ZOFRAN INJ 4 MG VIAL ONE (13:29)
[2024-06-24] MEDS: PEPCID 20 MG VIAL ONE (13:29)
[2024-06-24] MEDS ORDERED: PRECEDEX INJ VIAL ONE (13:29)
[2024-06-24] MEDS: HEPARIN SODIUM IN D5W 75,000 UNITS/1,500 ML BAG ONE (13:49)
[2024-06-24] MEDS: VISIPAQUE 100 ML ONE (13:49)
[2024-06-24] MEDS: HEPARIN SODIUM INJ 5000 UNITS ONE (13:50)
--- NOTE | 2024-06-24 15:29 | OR.IMMED ---
IMMEDIATE POST-OP NOTE Immediate Post-Op Note Date of surgery/procedure: 06/24/24 Pre-Op Diagnosis: thrombosis right SFA , poor runoff right leg Post-Op Diagnosis: thrombosis resolved , still witjh poor runoff right leg Procedure: arteriogram right leg , remove EKOS catheter, angioplasty right peroneal artery Description of Procedure: dictated Surgeon/Nuisance Wildlife Specialist: Rowena Findings: as above, only runoff diseased right peroneal artery Estimated Blood Loss: < 50 cc Complications: none Progress Notes: to ccu
[2024-06-24 17:18] LABS: BASOPHILS # (AUTO) 0.1 X10^3/uL (0.0-0.1); BASOPHILS % (AUTO) 0.5 % (0.2-1.0); EOSINOPHILS % (AUTO) 0.2 % (0.9-2.9); HEMATOCRIT 31.8 % (36.0-47.0); HEMOGLOBIN 10.8 g/dL (12.0-16.0); LYMPHOCYTES % (AUTO) 19.9 % (21.0-51.0); MEAN CORPUSCULAR HEMOGLOBIN 32.8 pg (27.0-34.0); MEAN CORPUSCULAR VOLUME 96.6 fL (80.0-100.0); MONOCYTES # (AUTO) 0.7 x10^3/uL (0.3-0.8); MONOCYTES % (AUTO) 6.9 % (0.0-13.0); NEUTROPHILS # (AUTO) 7.4 x10^3/uL (2.2-4.8); NEUTROPHILS % (AUTO) 72.5 % (42.0-75.0); PLATELET COUNT 188 X10^3/uL (150.0-450.0); RED CELL DISTRIBUTION WIDTH 13.6 % (11.6-16.5); WHITE BLOOD COUNT 10.2 X10^3/uL (3.6-10.0)
[2024-06-24 23:20] LABS: BASOPHILS % (AUTO) 0.3 % (0.2-1.0); EOSINOPHILS % (AUTO) 0.4 % (0.9-2.9); HEMATOCRIT 31.3 % (36.0-47.0); HEMOGLOBIN 10.7 g/dL (12.0-16.0); LYMPHOCYTES # (AUTO) 1.6 X10^3/uL (1.3-2.9); LYMPHOCYTES % (AUTO) 18.9 % (21.0-51.0); MEAN CORPUSCULAR HEMOGLOBIN 33.1 pg (27.0-34.0); MEAN CORPUSCULAR HGB CONC 34.1 g/dL (33.0-35.0); MEAN CORPUSCULAR VOLUME 97.1 fL (80.0-100.0); MEAN PLATELET VOLUME 8.5 fL (7.4-11.0); MONOCYTES # (AUTO) 0.6 x10^3/uL (0.3-0.8); MONOCYTES % (AUTO) 6.6 % (0.0-13.0); NEUTROPHILS # (AUTO) 6.4 x10^3/uL (2.2-4.8); NEUTROPHILS % (AUTO) 73.8 % (42.0-75.0); PLATELET COUNT 187 X10^3/uL (150.0-450.0); RED BLOOD COUNT 3.22 X10^6/uL (3.5-5.4); RED CELL DISTRIBUTION WIDTH 13.6 % (11.6-16.5); WHITE BLOOD COUNT 8.7 X10^3/uL (3.6-10.0)
[2024-06-25 05:48] LABS: BASOPHILS % (AUTO) 0.4 % (0.2-1.0); EOSINOPHILS % (AUTO) 0.6 % (0.9-2.9); HEMATOCRIT 29.7 % (36.0-47.0); HEMOGLOBIN 10.2 g/dL (12.0-16.0); LYMPHOCYTES # (AUTO) 1.8 X10^3/uL (1.3-2.9); LYMPHOCYTES % (AUTO) 23.1 % (21.0-51.0); MEAN CORPUSCULAR HEMOGLOBIN 33.3 pg (27.0-34.0); MEAN CORPUSCULAR HGB CONC 34.3 g/dL (33.0-35.0); MEAN CORPUSCULAR VOLUME 96.9 fL (80.0-100.0); MEAN PLATELET VOLUME 9.3 fL (7.4-11.0); MONOCYTES # (AUTO) 0.5 x10^3/uL (0.3-0.8); MONOCYTES % (AUTO) 6.8 % (0.0-13.0); NEUTROPHILS # (AUTO) 5.3 x10^3/uL (2.2-4.8); NEUTROPHILS % (AUTO) 69.1 % (42.0-75.0); PLATELET COUNT 172 X10^3/uL (150.0-450.0); RED BLOOD COUNT 3.06 X10^6/uL (3.5-5.4); RED CELL DISTRIBUTION WIDTH 13.6 % (11.6-16.5); WHITE BLOOD COUNT 7.7 X10^3/uL (3.6-10.0)
[2024-06-25] MEDS ORDERED: XARELTO PO SCH (09:00)
[2024-06-25 10:04] VITALS: TEMP 97.8
[2024-06-25 11:08] LABS: BASOPHILS # (AUTO) 0.1 X10^3/uL (0.0-0.1); BASOPHILS % (AUTO) 1.6 % (0.2-1.0); EOSINOPHILS # (AUTO) 0.1 x10^3/uL (0.0-0.2); EOSINOPHILS % (AUTO) 0.9 % (0.9-2.9); HEMATOCRIT 27.9 % (36.0-47.0); HEMOGLOBIN 9.6 g/dL (12.0-16.0); LYMPHOCYTES # (AUTO) 1.1 X10^3/uL (1.3-2.9); LYMPHOCYTES % (AUTO) 14.9 % (21.0-51.0); MEAN CORPUSCULAR HEMOGLOBIN 33.4 pg (27.0-34.0); MEAN CORPUSCULAR HGB CONC 34.6 g/dL (33.0-35.0); MEAN CORPUSCULAR VOLUME 96.8 fL (80.0-100.0); MONOCYTES # (AUTO) 0.4 x10^3/uL (0.3-0.8); MONOCYTES % (AUTO) 5.4 % (0.0-13.0); NEUTROPHILS # (AUTO) 5.8 x10^3/uL (2.2-4.8); NEUTROPHILS % (AUTO) 77.2 % (42.0-75.0); PLATELET COUNT 175 X10^3/uL (150.0-450.0); RED BLOOD COUNT 2.88 X10^6/uL (3.5-5.4); RED CELL DISTRIBUTION WIDTH 13.5 % (11.6-16.5); WHITE BLOOD COUNT 7.5 X10^3/uL (3.6-10.0)
[2024-06-25 13:28] VITALS: BP 174/75
--- NOTE | 2024-06-25 15:20 | W.DIS.FURT ---
Summary of Discharge Discharge Summary of Date Date of Exam: 06/25/24 Admission Date Date of Admission: 06/20/24 Admission Diagnosis Hospital Course: This is an 84 year old female ,currently a resident of a [facility] Facility Who seen 2 weeks ago for non -mhealing wound to the right second toe. At that time she undwr went angioplasty of the right peroneal artery and Drug coated balloon angioplasty of the right tibial peroneal trunk. She was discharged home on her usual medications plus aspirin and Xarelto . She returned 2 weeks later on 06/20/2024 with a cold right foot. She was treated with therapeutic Lovenox and taken to the operating Suite on June where arteriogram showed thrombosis of the distal right superficial ant popliteal arteries with poor runoff as described above. At that time we placed a wire all the way down the peroneal artery to the ankle and an EKOS catheter was placed and the patient had directed thrombolysis for 24m hours . The next day, June she was taking back the operating suite and arteriogram showed resolution of the thrombosis. She had good flow throughout except for the runoff which was mainly through the right peroneal artery . She underwent angioplasty of the peroneal artery and has done well. She is maintained on Xarelto and aspirin. Her foot is warm. She will be discharged back to shelter facility today and follow up with me in 1 wee Vital Signs: Vital Signs (72 hours) 06/23/24 07:58 06/22/24 15:00 06/22/24 16:00 Temperature 98.4 F 98.4 F Pulse Rate 69 68 75 Respiratory Rate 21 20 21 Blood Pressure 106/51 126/62 147/67 O2 Sat by Pulse Oximetry 97 96 97 Oxygen Delivery Method Oxygen Flow Rate FIO2% 06/22/24 17:00 06/22/24 18:00 06/22/24 19:00 Temperature Pulse Rate 69 63 66 Respiratory Rate 21 19 14 Blood Pressure 106/57 120/63 130/63 O2 Sat by Pulse Oximetry 97 96 98 Oxygen Delivery Method Oxygen Flow Rate FIO2% 06/22/24 19:00 06/22/24 20:00 06/22/24 20:00 Temperature 99.2 F Pulse Rate 60 Respiratory Rate 20 Blood Pressure 124/70 O2 Sat by Pulse Oximetry 99 Oxygen Delivery Method Room Air Oxygen Flow Rate FIO2% 06/22/24 22:58 06/22/24 21:00 06/22/24 21:00 Temperature Pulse Rate 72 Respiratory Rate 22 24 Blood Pressure 113/55 O2 Sat by Pulse Oximetry 100 Oxygen Delivery Method Oxygen Flow Rate FIO2% 06/22/24 22:00 06/22/24 22:00 06/22/24 23:00 Temperature Pulse Rate 64 64 Respiratory Rate 21 24 Blood Pressure 128/59 O2 Sat by Pulse Oximetry 100 99 Oxygen Delivery Method Oxygen Flow Rate FIO2% 06/22/24 23:00 06/23/24 00:00 06/23/24 00:00 Temperature 98.2 F Pulse Rate 62 Respiratory Rate 15 Blood Pressure 129/59 110/53 O2 Sat by Pulse Oximetry 97 Oxygen Delivery Method Oxygen Flow Rate FIO2% 06/23/24 01:00 06/23/24 01:00 06/23/24 02:00 Temperature Pulse Rate 72 70 Respiratory Rate 20 17 Blood Pressure 125/69 O2 Sat by Pulse Oximetry 96 98 Oxygen Delivery Method Oxygen Flow Rate FIO2% 06/23/24 02:00 06/23/24 03:08 06/23/24 03:09 Temperature Pulse Rate Respiratory Rate 17 20 Blood Pressure 135/69 O2 Sat by Pulse Oximetry Oxygen Delivery Method Oxygen Flow Rate FIO2% 06/23/24 03:00 06/23/24 03:01 06/23/24 03:02 Temperature Pulse Rate 80 Respiratory Rate 21 Blood Pressure 181/78 172/84 O2 Sat by Pulse Oximetry 99 Oxygen Delivery Method Oxygen Flow Rate FIO2% 06/23/24 04:01 06/23/24 04:01 06/23/24 03:39 Temperature 97.8 F Pulse Rate 77 Respiratory Rate 18 20 Blood Pressure 164/71 O2 Sat by Pulse Oximetry 99 Oxygen Delivery Method Oxygen Flow Rate FIO2% 06/23/24 05:01 06/23/24 05:01 06/23/24 06:00 Temperature Pulse Rate 69 75 Respiratory Rate 20 20 Blood Pressure 168/74 O2 Sat by Pulse Oximetry 99 98 Oxygen Delivery Method Oxygen Flow Rate FIO2% 06/23/24 06:01 06/23/24 06:01 06/23/24 06:08 Temperature Pulse Rate Respiratory Rate Blood Pressure 179/83 179/83 168/69 O2 Sat by Pulse Oximetry Oxygen Delivery Method Oxygen Flow Rate FIO2% 06/23/24 07:29 06/23/24 07:00 06/23/24 08:00 Temperature 99.7 F H Pulse Rate 72 68 Respiratory Rate 24 20 19 Blood Pressure 189/88 185/86 O2 Sat by Pulse Oximetry 99 98 Oxygen Delivery Method Room Air Room Air Oxygen Flow Rate FIO2% 06/23/24 07:59 06/23/24 10:45 06/23/24 11:00 Temperature 98.7 F 98.7 F Pulse Rate 72 77 Respiratory Rate 12 18 17 Blood Pressure 164/77 196/91 O2 Sat by Pulse Oximetry 99 100 Oxygen Delivery Method Nasal Cannula Nasal Cannula Oxygen Flow Rate 2 2 FIO2% 06/23/24 11:15 06/23/24 11:30 06/23/24 11:45 Temperature 98.0 F 98.0 F 98.2 F Pulse Rate 68 66 66 Respiratory Rate 17 17 17 Blood Pressure 182/85 172/71 177/84 O2 Sat by Pulse Oximetry 100 100 99 Oxygen Delivery Method Nasal Cannula Nasal Cannula Nasal Cannula Oxygen Flow Rate 2 2 2 FIO2% 06/23/24 07:00 06/23/24 13:26 06/23/24 12:59 Temperature Pulse Rate Respiratory Rate 21 Blood Pressure O2 Sat by Pulse Oximetry Oxygen Delivery Method Room Air Nasal Cannula Oxygen Flow Rate 2 FIO2% 28 06/23/24 12:45 06/23/24 13:45 06/23/24 13:56 Temperature 98.2 F 98.6 F Pulse Rate 70 77 Respiratory Rate 15 16 19 Blood Pressure 192/84 197/93 O2 Sat by Pulse Oximetry 100 100 Oxygen Delivery Method Nasal Cannula Nasal Cannula Oxygen Flow Rate 2 2 FIO2% 06/23/24 14:45 06/23/24 15:45 06/23/24 16:00 Temperature 98.1 F 97.8 F Pulse Rate 76 76 77 Respiratory Rate 19 19 18 Blood Pressure 180/84 183/86 184/83 O2 Sat by Pulse Oximetry 100 100 100 Oxygen Delivery Method Nasal Cannula Nasal Cannula Nasal Cannula Oxygen Flow Rate 2 2 2 FIO2% 06/23/24 17:00 06/23/24 18:00 06/23/24 19:00 Temperature Pulse Rate 78 77 Respiratory Rate 18 19 Blood Pressure 189/85 182/84 O2 Sat by Pulse Oximetry 100 99 Oxygen Delivery Method Nasal Cannula Nasal Cannula Room Air Oxygen Flow Rate 2 2 FIO2% 06/23/24 19:00 06/23/24 20:00 06/23/24 21:00 Temperature 98.0 F Pulse Rate 83 77 87 Respiratory Rate 18 20 20 Blood Pressure 169/78 182/79 160/74 O2 Sat by Pulse Oximetry 100 100 100 Oxygen Delivery Method Nasal Cannula Nasal Cannula Nasal Cannula Oxygen Flow Rate 2 2 2 FIO2% 06/23/24 22:00 06/24/24 01:00 06/23/24 23:00 Temperature Pulse Rate 86 78 81 Respiratory Rate 18 20 22 Blood Pressure 173/80 145/68 169/80 O2 Sat by Pulse Oximetry 100 98 99 Oxygen Delivery Method Nasal Cannula Nasal Cannula Nasal Cannula Oxygen Flow Rate 2 2 2 FIO2% 06/24/24 00:00 06/24/24 02:00 06/23/24 21:15 Temperature 98.1 F Pulse Rate 85 78 Respiratory Rate 24 24 Blood Pressure 143/69 O2 Sat by Pulse Oximetry 100 100 Oxygen Delivery Method Nasal Cannula Nasal Cannula Nasal Cannula Oxygen Flow Rate 2 2 2 FIO2% 28 06/24/24 03:00 06/24/24 04:00 06/24/24 05:00 Temperature 98.0 F Pulse Rate 75 77 60 Respiratory Rate 22 22 22 Blood Pressure 151/70 148/92 174/76 O2 Sat by Pulse Oximetry 100 100 100 Oxygen Delivery Method Nasal Cannula Nasal Cannula Nasal Cannula Oxygen Flow Rate 2 2 2 FIO2% 06/24/24 06:00 06/24/24 07:00 06/24/24 07:00 Temperature Pulse Rate 60 Respiratory Rate 21 Blood Pressure 169/79 178/78 O2 Sat by Pulse Oximetry 100 Oxygen Delivery Method Nasal Cannula Room Air Oxygen Flow Rate 2 FIO2% 06/24/24 07:00 06/24/24 07:00 06/24/24 08:00 Temperature Pulse Rate 68 78 Respiratory Rate 23 23 Blood Pressure 178/78 O2 Sat by Pulse Oximetry 100 100 Oxygen Delivery Method Oxygen Flow Rate FIO2% 06/24/24 08:00 06/24/24 08:00 06/24/24 08:00 Temperature 99.2 F Pulse Rate Respiratory Rate Blood Pressure 168/76 168/76 168/76 O2 Sat by Pulse Oximetry Oxygen Delivery Method Oxygen Flow Rate FIO2% 06/24/24 09:00 06/24/24 09:00 06/24/24 10:00 Temperature Pulse Rate 76 Respiratory Rate 24 Blood Pressure 189/84 160/76 O2 Sat by Pulse Oximetry 100 Oxygen Delivery Method Oxygen Flow Rate FIO2% 06/24/24 10:00 06/24/24 11:00 06/24/24 11:00 Temperature Pulse Rate 75 80 Respiratory Rate 22 16 Blood Pressure 142/65 O2 Sat by Pulse Oximetry 100 98 Oxygen Delivery Method Oxygen Flow Rate FIO2% 06/24/24 11:15 06/24/24 11:30 06/24/24 11:45 Temperature Pulse Rate 77 75 75 Respiratory Rate 16 15 16 Blood Pressure O2 Sat by Pulse Oximetry 99 99 99 Oxygen Delivery Method Oxygen Flow Rate FIO2% 06/24/24 12:00 06/24/24 12:00 06/24/24 12:15 Temperature Pulse Rate 73 72 Respiratory Rate 16 17 Blood Pressure 145/67 O2 Sat by Pulse Oximetry 99 99 Oxygen Delivery Method Oxygen Flow Rate FIO2% 06/24/24 12:30 06/24/24 14:24 06/24/24 14:24 Temperature 98.7 F Pulse Rate 74 61 Respiratory Rate 16 Blood Pressure 156/81 O2 Sat by Pulse Oximetry 100 99 Oxygen Delivery Method Oxygen Flow Rate FIO2% 06/24/24 14:30 06/24/24 14:30 06/24/24 14:45 Temperature 98.3 F Pulse Rate 61 60 Respiratory Rate 17 16 Blood Pressure 157/74 O2 Sat by Pulse Oximetry 100 100 Oxygen Delivery Method Oxygen Flow Rate FIO2% 06/24/24 14:45 06/24/24 15:00 06/24/24 15:00 Temperature 98.3 F 98.3 F Pulse Rate 63 Respiratory Rate 16 Blood Pressure 153/70 157/74 O2 Sat by Pulse Oximetry 100 Oxygen Delivery Method Oxygen Flow Rate FIO2% 06/24/24 15:15 06/24/24 15:15 06/24/24 15:30 Temperature 98.1 F Pulse Rate 59 L Respiratory Rate 16 Blood Pressure 146/66 172/77 O2 Sat by Pulse Oximetry 100 Oxygen Delivery Method Oxygen Flow Rate FIO2% 06/24/24 15:30 06/24/24 15:45 06/24/24 15:45 Temperature Pulse Rate 59 L 59 L Respiratory Rate 16 16 Blood Pressure 169/75 O2 Sat by Pulse Oximetry 100 100 Oxygen Delivery Method Oxygen Flow Rate FIO2% 06/24/24 16:00 06/24/24 16:00 06/24/24 16:15 Temperature Pulse Rate 60 61 Respiratory Rate 15 16 Blood Pressure 178/78 O2 Sat by Pulse Oximetry 100 100 Oxygen Delivery Method Oxygen Flow Rate FIO2% 06/24/24 16:15 06/24/24 16:30 06/24/24 16:30 Temperature 98.1 F Pulse Rate 70 Respiratory Rate 16 Blood Pressure 173/76 180/77 O2 Sat by Pulse Oximetry 100 Oxygen Delivery Method Oxygen Flow Rate FIO2% 06/24/24 16:45 06/24/24 16:45 06/24/24 17:00 Temperature Pulse Rate 59 L 67 Respiratory Rate 16 17 Blood Pressure 191/82 O2 Sat by Pulse Oximetry 100 100 Oxygen Delivery Method Oxygen Flow Rate FIO2% 06/24/24 17:00 06/24/24 17:15 06/24/24 17:16 Temperature 98.1 F Pulse Rate 58 L 59 L Respiratory Rate 16 17 Blood Pressure 184/89 O2 Sat by Pulse Oximetry 100 100 Oxygen Delivery Method Oxygen Flow Rate FIO2% 06/24/24 17:16 06/24/24 17:30 06/24/24 17:30 Temperature Pulse Rate 64 Respiratory Rate 17 Blood Pressure 180/81 187/86 O2 Sat by Pulse Oximetry 100 Oxygen Delivery Method Oxygen Flow Rate FIO2% 06/24/24 17:45 06/24/24 17:45 06/24/24 18:00 Temperature Pulse Rate 71 69 Respiratory Rate 12 14 Blood Pressure 140/67 O2 Sat by Pulse Oximetry 100 100 Oxygen Delivery Method Oxygen Flow Rate FIO2% 06/24/24 18:00 06/24/24 18:15 06/24/24 18:15 Temperature 98.1 F Pulse Rate 60 Respiratory Rate 13 Blood Pressure 140/65 145/67 O2 Sat by Pulse Oximetry 100 Oxygen Delivery Method Oxygen Flow Rate FIO2% 06/24/24 18:30 06/24/24 18:30 06/24/24 10:43 Temperature Pulse Rate 60 Respiratory Rate 12 24 Blood Pressure 151/69 O2 Sat by Pulse Oximetry 100 Oxygen Delivery Method Oxygen Flow Rate FIO2% 06/24/24 11:13 06/24/24 17:24 06/24/24 17:54 Temperature Pulse Rate Respiratory Rate 16 20 16 Blood Pressure O2 Sat by Pulse Oximetry Oxygen Delivery Method Oxygen Flow Rate FIO2% 06/24/24 19:24 06/24/24 19:00 06/24/24 18:30 Temperature Pulse Rate Respiratory Rate 24 Blood Pressure 151/69 O2 Sat by Pulse Oximetry Oxygen Delivery Method Room Air Oxygen Flow Rate FIO2% 06/24/24 18:45 06/24/24 18:45 06/24/24 19:00 Temperature Pulse Rate 60 Respiratory Rate 16 Blood Pressure 146/71 154/73 O2 Sat by Pulse Oximetry 100 Oxygen Delivery Method Oxygen Flow Rate FIO2% 06/24/24 19:00 06/24/24 19:15 06/24/24 19:30 Temperature Pulse Rate 61 67 69 Respiratory Rate 19 20 14 Blood Pressure O2 Sat by Pulse Oximetry 100 100 100 Oxygen Delivery Method Oxygen Flow Rate FIO2% 06/24/24 19:45 06/24/24 20:00 06/24/24 20:01 Temperature Pulse Rate 61 62 Respiratory Rate 14 14 Blood Pressure 174/77 O2 Sat by Pulse Oximetry 100 100 Oxygen Delivery Method Oxygen Flow Rate FIO2% 06/24/24 20:01 06/24/24 20:15 06/24/24 19:54 Temperature 98 F Pulse Rate 62 63 Respiratory Rate 14 17 16 Blood Pressure O2 Sat by Pulse Oximetry 100 100 Oxygen Delivery Method Oxygen Flow Rate FIO2% 06/24/24 20:30 06/24/24 20:45 06/24/24 21:02 Temperature Pulse Rate 58 L 63 Respiratory Rate 10 L 17 Blood Pressure 182/86 O2 Sat by Pulse Oximetry 100 100 Oxygen Delivery Method Oxygen Flow Rate FIO2% 06/24/24 21:02 06/24/24 20:00 06/24/24 21:30 Temperature Pulse Rate 69 66 Respiratory Rate 19 17 Blood Pressure O2 Sat by Pulse Oximetry 100 100 Oxygen Delivery Method Nasal Cannula Oxygen Flow Rate 2 FIO2% 28 06/24/24 21:45 06/24/24 22:00 06/24/24 22:00 Temperature Pulse Rate 62 63 Respiratory Rate 16 15 Blood Pressure 180/82 O2 Sat by Pulse Oximetry 100 100 Oxygen Delivery Method Oxygen Flow Rate FIO2% 06/24/24 22:15 06/24/24 22:30 06/24/24 22:45 Temperature Pulse Rate 60 62 68 Respiratory Rate 16 16 16 Blood Pressure O2 Sat by Pulse Oximetry 100 100 100 Oxygen Delivery Method Oxygen Flow Rate FIO2% 06/24/24 23:00 06/24/24 23:00 06/24/24 23:15 Temperature Pulse Rate 60 60 Respiratory Rate 15 17 Blood Pressure 156/73 O2 Sat by Pulse Oximetry 100 100 Oxygen Delivery Method Oxygen Flow Rate FIO2% 06/24/24 23:30 06/24/24 23:45 06/25/24 00:00 Temperature 98.7 F Pulse Rate 62 75 62 Respiratory Rate 19 20 22 Blood Pressure O2 Sat by Pulse Oximetry 100 100 100 Oxygen Delivery Method Oxygen Flow Rate FIO2% 06/25/24 00:00 06/24/24 19:20 06/25/24 00:15 Temperature 98.1 F Pulse Rate 61 59 L Respiratory Rate 19 20 Blood Pressure 162/72 154/73 O2 Sat by Pulse Oximetry 100 100 Oxygen Delivery Method Oxygen Flow Rate FIO2% 06/25/24 00:30 06/25/24 00:45 06/25/24 01:00 Temperature Pulse Rate 60 62 Respiratory Rate 21 18 Blood Pressure 167/73 O2 Sat by Pulse Oximetry 99 100 Oxygen Delivery Method Oxygen Flow Rate FIO2% 06/25/24 01:00 06/25/24 01:15 06/25/24 01:30 Temperature Pulse Rate 65 60 66 Respiratory Rate 23 21 21 Blood Pressure O2 Sat by Pulse Oximetry 99 100 99 Oxygen Delivery Method Oxygen Flow Rate FIO2% 06/25/24 01:45 06/25/24 02:00 06/25/24 02:00 Temperature Pulse Rate 59 L 61 Respiratory Rate 18 18 Blood Pressure 156/69 O2 Sat by Pulse Oximetry 100 100 Oxygen Delivery Method Oxygen Flow Rate FIO2% 06/25/24 02:15 06/25/24 02:30 06/25/24 02:45 Temperature Pulse Rate 61 66 60 Respiratory Rate 16 21 20 Blood Pressure O2 Sat by Pulse Oximetry 100 100 100 Oxygen Delivery Method Oxygen Flow Rate FIO2% 06/25/24 03:00 06/25/24 03:00 06/25/24 03:00 Temperature Pulse Rate 58 L Respiratory Rate 8 L Blood Pressure 138/68 138/68 O2 Sat by Pulse Oximetry 100 Oxygen Delivery Method Oxygen Flow Rate FIO2% 06/25/24 03:00 06/25/24 03:00 06/25/24 03:15 Temperature Pulse Rate 58 L 63 Respiratory Rate 8 L 21 Blood Pressure 138/68 O2 Sat by Pulse Oximetry 100 100 Oxygen Delivery Method Oxygen Flow Rate FIO2% 06/25/24 03:30 06/25/24 03:45 06/25/24 04:00 Temperature 97.9 F Pulse Rate 58 L 59 L 61 Respiratory Rate 18 18 21 Blood Pressure O2 Sat by Pulse Oximetry 100 100 100 Oxygen Delivery Method Oxygen Flow Rate FIO2% 06/25/24 04:01 06/25/24 04:01 06/25/24 04:15 Temperature Pulse Rate 60 56 L Respiratory Rate 20 20 Blood Pressure 166/70 O2 Sat by Pulse Oximetry 100 100 Oxygen Delivery Method Oxygen Flow Rate FIO2% 06/25/24 05:05 06/25/24 04:30 06/25/24 04:45 Temperature Pulse Rate 60 63 Respiratory Rate 20 17 22 Blood Pressure O2 Sat by Pulse Oximetry 100 100 Oxygen Delivery Method Oxygen Flow Rate FIO2% 06/25/24 05:00 06/25/24 05:00 06/25/24 05:15 Temperature Pulse Rate 62 57 L Respiratory Rate 16 14 Blood Pressure 160/72 O2 Sat by Pulse Oximetry 100 100 Oxygen Delivery Method Oxygen Flow Rate FIO2% 06/25/24 05:30 06/25/24 05:45 06/25/24 05:35 Temperature Pulse Rate 56 L 57 L Respiratory Rate 13 13 16 Blood Pressure O2 Sat by Pulse Oximetry 100 100 Oxygen Delivery Method Oxygen Flow Rate FIO2% 06/25/24 06:00 06/25/24 06:00 06/25/24 06:00 Temperature Pulse Rate 57 L Respiratory Rate 14 Blood Pressure 155/70 155/70 O2 Sat by Pulse Oximetry 100 Oxygen Delivery Method Oxygen Flow Rate FIO2% 06/25/24 06:00 06/25/24 08:43 06/25/24 07:00 Temperature Pulse Rate 57 L Respiratory Rate 14 18 Blood Pressure O2 Sat by Pulse Oximetry 100 Oxygen Delivery Method Room Air Oxygen Flow Rate FIO2% 06/25/24 06:15 06/25/24 06:30 06/25/24 06:45 Temperature Pulse Rate 57 L 60 59 L Respiratory Rate 12 13 12 Blood Pressure O2 Sat by Pulse Oximetry 100 100 100 Oxygen Delivery Method Oxygen Flow Rate FIO2% 06/25/24 07:00 06/25/24 07:00 06/25/24 07:00 Temperature Pulse Rate Respiratory Rate Blood Pressure 161/71 161/71 161/71 O2 Sat by Pulse Oximetry Oxygen Delivery Method Oxygen Flow Rate FIO2% 06/25/24 07:00 06/25/24 07:15 06/25/24 07:30 Temperature Pulse Rate 59 L 57 L 59 L Respiratory Rate 14 18 16 Blood Pressure O2 Sat by Pulse Oximetry 100 100 100 Oxygen Delivery Method Oxygen Flow Rate FIO2% 06/25/24 07:45 06/25/24 08:00 06/25/24 08:00 Temperature Pulse Rate 56 L Respiratory Rate 13 Blood Pressure 162/70 162/70 O2 Sat by Pulse Oximetry 100 Oxygen Delivery Method Oxygen Flow Rate FIO2% 06/25/24 08:00 06/25/24 08:00 06/25/24 08:00 Temperature 97.8 F Pulse Rate 56 L 56 L Respiratory Rate 14 14 Blood Pressure 162/70 O2 Sat by Pulse Oximetry 100 100 Oxygen Delivery Method Oxygen Flow Rate FIO2% 06/25/24 08:15 06/25/24 08:30 06/25/24 08:45 Temperature Pulse Rate 57 L 55 L 57 L Respiratory Rate 17 17 19 Blood Pressure O2 Sat by Pulse Oximetry 100 100 100 Oxygen Delivery Method Oxygen Flow Rate FIO2% 06/25/24 09:00 06/25/24 09:00 06/25/24 09:15 Temperature Pulse Rate 66 66 Respiratory Rate 21 24 Blood Pressure 183/93 O2 Sat by Pulse Oximetry 100 100 Oxygen Delivery Method Oxygen Flow Rate FIO2% 06/25/24 09:30 06/25/24 09:45 06/25/24 10:00 Temperature Pulse Rate 73 71 64 Respiratory Rate 20 17 17 Blood Pressure O2 Sat by Pulse Oximetry 100 100 100 Oxygen Delivery Method Oxygen Flow Rate FIO2% 06/25/24 10:01 06/25/24 10:01 06/25/24 09:13 Temperature Pulse Rate 63 Respiratory Rate 14 18 Blood Pressure 127/59 O2 Sat by Pulse Oximetry 100 Oxygen Delivery Method Oxygen Flow Rate FIO2% 06/25/24 10:01 06/25/24 10:15 06/25/24 10:30 Temperature Pulse Rate 62 62 Respiratory Rate 14 17 Blood Pressure 127/59 O2 Sat by Pulse Oximetry 100 100 Oxygen Delivery Method Oxygen Flow Rate FIO2% 06/25/24 10:45 06/25/24 11:00 06/25/24 11:01 Temperature Pulse Rate 69 69 66 Respiratory Rate 19 24 18 Blood Pressure O2 Sat by Pulse Oximetry 100 100 100 Oxygen Delivery Method Oxygen Flow Rate FIO2% 06/25/24 11:01 06/25/24 11:01 06/25/24 11:15 Temperature Pulse Rate 67 Respiratory Rate 15 Blood Pressure 168/74 168/74 O2 Sat by Pulse Oximetry 100 Oxygen Delivery Method Oxygen Flow Rate FIO2% 06/25/24 11:30 06/25/24 11:45 06/25/24 12:00 Temperature Pulse Rate 68 69 68 Respiratory Rate 15 16 16 Blood Pressure O2 Sat by Pulse Oximetry 100 100 100 Oxygen Delivery Method Oxygen Flow Rate FIO2% 06/25/24 12:15 06/25/24 12:30 06/25/24 12:45 Temperature Pulse Rate 63 79 61 Respiratory Rate 16 20 17 Blood Pressure O2 Sat by Pulse Oximetry 100 100 100 Oxygen Delivery Method Oxygen Flow Rate FIO2% 06/25/24 13:00 06/25/24 13:00 06/25/24 13:15 Temperature Pulse Rate 62 68 Respiratory Rate 17 16 Blood Pressure 174/75 O2 Sat by Pulse Oximetry 100 100 Oxygen Delivery Method Oxygen Flow Rate FIO2% 06/25/24 13:30 06/25/24 13:45 06/25/24 14:00 Temperature Pulse Rate 62 65 65 Respiratory Rate 21 18 17 Blood Pressure O2 Sat by Pulse Oximetry 100 100 100 Oxygen Delivery Method Oxygen Flow Rate FIO2% 06/25/24 14:15 06/25/24 14:30 Temperature Pulse Rate 71 70 Respiratory Rate 14 18 Blood Pressure O2 Sat by Pulse Oximetry 100 100 Oxygen Delivery Method Oxygen Flow Rate FIO2% Labs: Laboratory Last Values WBC 7.5 X10^3/uL (3.6-10.0) 06/25/24 10:50 RBC 2.88 X10^6/uL (3.5-5.4) L 06/25/24 10:50 Hgb 9.6 g/dL (12.0-16.0) L 06/25/24 10:50 Hct 27.9 % (36.0-47.0) L 06/25/24 10:50 MCV 96.8 fL (80.0-100.0) 06/25/24 10:50 MCH 33.4 pg (27.0-34.0) 06/25/24 10:50 MCHC 34.6 g/dL (33.0-35.0) 06/25/24 10:50 RDW 13.5 % (11.6-16.5) 06/25/24 10:50 Plt Count 175 X10^3/uL (150.0-450.0) 06/25/24 10:50 MPV 9.0 fL (7.4-11.0) 06/25/24 10:50 Neut % (Auto) 77.2 % (42.0-75.0) H 06/25/24 10:50 Lymph % (Auto) 14.9 % (21.0-51.0) L 06/25/24 10:50 [place] % (Auto) 5.4 % (0.0-13.0) 06/25/24 10:50 Eos % (Auto) 0.9 % (0.9-2.9) 06/25/24 10:50 Baso % (Auto) 1.6 % (0.2-1.0) H 06/25/24 10:50 Neut # (Auto) 5.8 x10^3/uL (2.2-4.8) H 06/25/24 10:50 Lymph # (Auto) 1.1 X10^3/uL (1.3-2.9) L 06/25/24 10:50 [place] # (Auto) 0.4 x10^3/uL (0.3-0.8) 06/25/24 10:50 Eos # (Auto) 0.1 x10^3/uL (0.0-0.2) 06/25/24 10:50 Baso # (Auto) 0.1 X10^3/uL (0.0-0.1) 06/25/24 10:50 Absolute Nucleated RBC 0.0 /100WBC 06/25/24 10:50 APTT 36.5 SECONDS (22.9-36.5) 06/25/24 10:50 PTT Comment - 06/25/24 10:50 Fibrinogen 510 mg/dL (239-489) H 06/25/24 10:50 Sodium 137 mmol/L (136-145) 06/23/24 04:44 Corrected Sodium 138 mmol/L (136-145) 06/23/24 04:44 Potassium 3.6 mmol/L (3.5-5.1) 06/25/24 05:00 Chloride 103 mmol/L (98-107) 06/23/24 04:44 Carbon Dioxide 24.0 mmol/L (21-32) 06/23/24 04:44 BUN 9 mg/dL (7-18) 06/23/24 04:44 Creatinine 0.43 mg/dL (0.55-1.02) L 06/23/24 04:44 Est GFR (MDRD) Af Amer > 60 (>60) 06/23/24 04:44 Est GFR (MDRD) Non-Af > 60 (>60) 06/23/24 04:44 Glucose 150 mg/dL (65-99) H 06/23/24 04:44 POC Glucose (mg/dL) 224 mg/dL (65-99) H 06/25/24 11:23 Calcium 8.3 mg/dL (8.5-10.1) L 06/23/24 04:44 Corrected Calcium 9.8 mg/dL (8.5-10.1) 06/23/24 04:44 Magnesium 2.1 mg/dL (2.0-2.9) 06/24/24 05:08 Total Bilirubin 0.70 mg/dL (0.2-1.0) 06/23/24 04:44 AST 21 Units/L (15-37) 06/23/24 04:44 ALT 18 Units/L (12-78) 06/23/24 04:44 Alkaline Phosphatase 79 Units/L (46-116) 06/23/24 04:44 Total Protein 5.8 g/dL (6.4-8.2) L 06/23/24 04:44 Albumin 2.1 g/dL (3.4-5.0) L 06/23/24 04:44 Globulin 3.7 g/dL (2.5-4.5) 06/23/24 04:44 Albumin/Globulin Ratio 0.6 Ratio (1.1-2.1) L 06/23/24 04:44 Blood Type O POSITIVE 06/23/24 08:55 Antibody Screen Negative 06/23/24 08:55 Reason For Visit: CRITICAL ISCHEMIA RIGHT LEG Discharge Date Discharge Date: 06/25/24 Discharge Diagnosis All Active Problems (Updated 06/06/24 @ 13:12 by Bryan Guaman) Gastroparesis (Acute) Anxiety (Acute) Personal history of malignant neoplasm of stomach (Acute) Personal history of breast cancer (Acute) Type 2 diabetes mellitus without complications (Acute) Atherosclerosis of [place] arteries of extremities with rest pain, left leg (Acute) Atherosclerosis of [place] arteries of extremities with rest pain, right leg (Acute) Plan of Treatment: Continue with present treatment and follow up plan. Pt is to keep follow up appointment as instructed and take medications as ordered. Discharge Medications Discharge Medications: ciprofloxacin [Cipro] Allergy (Unknown, Verified 03/07/22 13:15) coconut Allergy (Unknown, Verified 06/06/24 12:28) gatifloxacin [Tequin] Allergy (Unknown, Verified 03/07/22 13:15) lettuce Allergy (Unknown, Verified 06/06/24 12:28) levofloxacin [Levaquin] Allergy (Unknown, Verified 03/07/22 13:15) onion Allergy (Unknown, Verified 06/06/24 12:28) pineapple Allergy (Unknown, Verified 06/06/24 12:28) strawberry Allergy (Unknown, Verified 03/07/22 13:16) all home meds plus aspirin 81 mg daily and Xarelto 2.5 mg po BID Discharge Disposition Assessment: see hospital course Discharge Plan Discharge Plan Hospital Course: This is an 84 year old female ,currently a resident of a [facility] Who seen 2 weeks ago for non -mhealing wound to the right second toe. At that time she undwr went angioplasty of the right peroneal artery and Drug coated balloon angioplasty of the right tibial peroneal trunk. She was discharged home on her usual medications plus aspirin and Xarelto . She returned 2 weeks later on 06/20/2024 with a cold right foot. She was treated with therapeutic Lovenox and taken to the operating Suite on June where arteriogram showed thrombosis of the distal right superficial ant popliteal arteries with poor runoff as described above. At that time we placed a wire all the way down the peroneal artery to the ankle and an EKOS catheter was placed and the patient had directed thrombolysis for 24m hours . The next day, June she was taking back the operating suite and arteriogram showed resolution of the thrombosis. She had good flow throughout except for the runoff which was mainly through the right peroneal artery . She underwent angioplasty of the peroneal artery and has done well. She is maintained on Xarelto and aspirin. Her foot is warm. She will be discharged back to shelter facility today and follow up with me in 1 wee Patient Disposition: XF SNF Condition: Stable Health Concerns: Post Hospitalization: new medications and changes needed to prevent readmission or further decline. Pt educated and given instructions on all concerns. Care Plan Goals: Problem: Pain/Alteration in Comfort Goal: Improve/ Resolve Pain; Achieve Pain Tolerance Instructions: Take pain medications as prescribed. Contact your primary care provider if your pain is unrelieved or worsens. Follow up with primary care provider as directed. Plan of Treatment: Continue with present treatment and follow up plan. Pt is to keep follow up appointment as instructed and take medications as ordered. Assessment: see hospital course Prescription drug monitoring program results: PDMP was not reviewed Prescriptions: New aspirin 81 mg capsule 81 mg PO QDAY Qty: 90 0RF Xarelto 2.5 mg tablet 2.5 mg PO BID Qty: 90 3RF Continued atorvastatin 80 mg tablet 80 mg PO QDAY carvedilol 6.25 mg tablet 6.25 mg PO BID hydrocodone-acetaminophen 5-325 mg tablet 1 tab PO TID PRN donepezil 10 mg tablet 10 mg PO QDAY ondansetron HCl 4 mg tablet 4 mg PO Q8H PRN famotidine 20 mg tablet 20 mg PO QDAY lorazepam 0.5 mg tablet 0.5 mg PO QDAY metoclopramide HCl 5 mg tablet 5 mg PO TID ropinirole 0.25 mg tablet 0.25 mg PO QDAY erythromycin 5 mg/gram (0.5 %) ointment 1 applic OPHTHALMIC (EYE) HS PRN (Reason: hordeolum) Patient Comments: [NO ORIGINAL SIG] metformin 1,000 mg tablet 1,000 mg PO BID megestrol 40 mg tablet 40 mg PO BID topiramate 200 mg tablet 200 mg PO BID insulin lispro [Humalog KwikPen Insulin] 100 unit/mL insulin pen See Rx Instructions .ROUTE .COMPLEX Patient Comments: [NO ORIGINAL SIG] Rx Instructions: Inject as per sliding scale : if 0-59 = 0 responsive=give instaglucose tabs or gel; unresponsive=Glucagen IM. Elie PORTILLO.; 60-180 = 0 181-220 = 4 221-260 = 6 261-300 = 8 301-350 = 10 351-400 = 12 401-1000 = 12; Elie PORTILLO subcutaneously four time a day for DM duloxetine 20 mg capsule,delayed release(DR/EC) 20 mg PO QDAY methenamine hippurate 1 gram tablet 1 g PO BID ascorbic acid (vitamin C) [Vitamin C] 500 mg Tablet 500 mg PO QDAY ferrous sulfate 325 mg (65 mg iron) Tablet 325 mg PO BID zinc 50 mg Tablet 50 mg PO QDAY guaifenesin 100 mg/5 mL Syrup 200 mg PO Q6H potassium chloride 10 mEq tablet,ER particles/crystals 10 meq PO QDAY cholecalciferol (vitamin D3) 1,250 mcg (50,000 unit) Capsule 1,250 mcg PO QWEEK Rx Instructions: EVERY THURSDAY diclofenac sodium [Voltaren] 1 % Gel 4 g TOPICAL QID Rx Instructions: apply to BILATERAL KNEES cyanocobalamin (vitamin B-12) 1,000 mcg/mL Kit 1,000 mcg SUBCUT QWEEK Rx Instructions: ON THURSDAY PreserVision AREDS 2 Plus MV 200 mcg-15 mcg- 5 mg-1 mg Capsule 1 cap PO DAILY Orders to Discharge Patient Discharge Orders: Discharge (Routine); Ordered 06/25/24 Ordered By: Bryan Guaman Follow ups/Referrals Follow ups/Referrals: Bryan Guaman [Primary Care Provider] - 07/04/24 2:30 pm Instructions Instructions: Endovascular Therapy for Peripheral Vascular Disease: What to Know After Stand Alone Forms: Excuse From Work or School, Post Hospital Follow Up Care
[2024-06-25 16:52] VITALS: PULSE 69; RESP 14; O2SAT 99
--- NOTE | 2024-06-29 21:31 | DR.OPNOTE ---
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 The left groin and entire right leg were prepped and draped in sterile fashion. The patient was given intravenous sedation supervised by myself. Time out for the procedure obtained. Ultrasound used to identify the left femoral artery and the skin overlying it infiltrated with 0.5% Marcaine. Ultrasound then used to guide puncture of the left femoral artery and a 0.012 inch guide wire was placed. Incision made over the guide wire at the skin edge with a # 11 knife blade and a micro sheath placed over the guide wire into the left femoral artery .The small guidewire exchanged for a 0.035 inch Advantage glide wire and the micro sheath exchanged for a 5 Fr vascular sheath. Patient given 5000 units of intravenous heparin. Omni catheter was placed over the guide wire into the aorta and diagnostic aortogram carried out with the power injector showing patent aorta and iliac arteies . Omni catheter was used to steer the guide wire down the right common iliac artery to the distal right ex ternal iliac artery . Omni catheter was exchanged for a [place] catheter and sequential arteriograms carried out of the right lower extremity showing complete thrombotic occlusion of the mid right superficial femoral artery and all arteries below this . The 5 Fr sheath in the left groin then exchanged for a 7 Fr Catapult destination sheath which was parked in the proximal right superficial femoral artery.[place] catheter and the guide wire were used to traverse the arteries of the right leg ultimately ending in the peroneal artery to the ankle . This was selective catheterization. [place] catheter removed and the EKOS sheath placed over the wire all the way to the ankle. Wire removed and placed with the inner viibrating core of the EKOS catheter . Bolus mof 3 mg TPA given throught the drug port and it connnected to TPA drip of 1 mg per hour to be given over 24 hours. Coolant of normal saline infused through the coolnat port at 30 c per hour. Therapuetic subcutaneous Lovenos will be started . Catheter and sheath secure and patient taken back to the CCU. 24 hour infusion with be given over 2 day interval . Type of Anesthesia: Local (0.5% Marcaine ) Anesthesia Comment: plus MAC Findings: thombosis of mid right superficial femoral artery with thrombosis of right popliteal arteries and distal runoff arteries Type of Fluids Used:: Lactated Ringers Total Amount of Fluid Infused:: 500cc Urine output: 150 cc EBL: < 50cc Complications:: none Needle/Sponge Count:: correct Disposition/Condition: Pt. tolerated procedure without difficulty. Extubated in the OR and taken to PACU in stable condition.
--- NOTE | 2024-07-05 17:44 | DR.OPNOTE ---
OP NOTE Pre-Op Diagnosis: critical ischemia right leg, thrombosis right SFA Post-Op Diagnosis: same Procedure Date Date Of Procedure: 06/24/24 Procedure: PROCEDURE : Documentation of second day of EKOS thrombolysis, removal of EKOS catheter, arteriogram right leg, angioplasty right peroneal artery NARRATIVE : This patient had placement of an EKOS thrombolytic catheter yesterday and then went over into a second day on today's date of surgery for m anaged thrombolysis . Patient had thrombolysis of an occluded right superficial femoral artery. She had had previous arterial intervention at the right leg. The patient was given intravenous sedation supervised by myself. Timeout for the procedure obtained. The EKOS catheter removed after removing the inner core and placing a 0.035 inch Advantage glidewire. Over the wire we placed a [place] catheter and performed arteriogram of the right leg showing all clot of the superficial femoral artery now resolved. Arteriogram showed excellent flow throught the politeal artery with single vessel runoff via diseased peroneal artery. The anterior and posterior tibial arteries did not ppacify. Once the arteriogram had been carried out of the right leg ,a [place] catheter and a 0.035 inch wire were use to traverse the right peroneal artery all the way down to the ankle. This was selective catheterization .Through the [place] catheter we exchanged the 0.035 inch Advantage [place] wire for a 0.014 inch wire. Over this while we placed a [place] 2 millimeter x 220 millimeter angioplast balloon and perfomred angioplasty of the entire peroneal artery. It should be noted the patient's run off was poor as neither the anterior tibial or posterior tibial artteries opacified . This is high risk for limb loss. All wires and devices removed . The sheath in the left femoral which had previously been placed for the procedure was pulled back into the aorta . The destination sheath exchanged for an Angioseal device used to close the puncture of the left common femoral artery. Dressing applied. Patient returned to the CCU. Type of Anesthesia: Local (0.5% Marcaine ) Anesthesia Comment: plus MAC Findings: thrombosis resolved right SFA after EKOS thrombolysis with single vessel runoff right leg via diseased peroneal artery Type of Fluids Used:: Lactated Ringers EBL: < 50 cc Complications:: none Needle/Sponge Count:: correct Disposition/Condition: Pt. tolerated procedure without difficulty. Taken to CCU in stable condition.
== END 2024-06-25 17:36 | DRG 279 ==
LOC: ICU
PROVIDERS: ADMIT Surgery; ATTEND Surgery
DX: R53.1 Weakness; Z85.3 Personal history of malignant neoplasm of breast; R79.1 Abnormal coagulation profile; L97.519 Non-pressure chronic ulcer of other part of right foot with unspecified severity; Z66 Do not resuscitate; E87.1 Hypo-osmolality and hyponatremia; E11.51 Type 2 diabetes mellitus with diabetic peripheral angiopathy without gangrene; R94.31 Abnormal electrocardiogram [ECG] [EKG]; I70.235 Atherosclerosis of native arteries of right leg with ulceration of other part of foot; F41.8 Other specified anxiety disorders; Z78.1 Physical restraint status; I70.221 Atherosclerosis of native arteries of extremities with rest pain, right leg; E11.65 Type 2 diabetes mellitus with hyperglycemia; Z85.028 Personal history of other malignant neoplasm of stomach

== ENCOUNTER 2024-07-25 13:03 | Observation (INO) ==
[2024-07-25] MEDS ORDERED: ULTANE GAS IN ONE (17:37)
[2024-07-25 19:07] LABS: BASOPHILS # (AUTO) 0.1 X10^3/uL (0.0-0.1); BASOPHILS % (AUTO) 0.6 % (0.2-1.0); EOSINOPHILS # (AUTO) 0.1 x10^3/uL (0.0-0.2); EOSINOPHILS % (AUTO) 1.1 % (0.9-2.9); HEMATOCRIT 34.7 % (36.0-47.0); HEMOGLOBIN 11.9 g/dL (12.0-16.0); LYMPHOCYTES # (AUTO) 1.9 X10^3/uL (1.3-2.9); LYMPHOCYTES % (AUTO) 21.5 % (21.0-51.0); MEAN CORPUSCULAR HEMOGLOBIN 33.4 pg (27.0-34.0); MEAN CORPUSCULAR HGB CONC 34.3 g/dL (33.0-35.0); MEAN CORPUSCULAR VOLUME 97.5 fL (80.0-100.0); MEAN PLATELET VOLUME 8.7 fL (7.4-11.0); MONOCYTES # (AUTO) 0.5 x10^3/uL (0.3-0.8); MONOCYTES % (AUTO) 5.5 % (0.0-13.0); NEUTROPHILS # (AUTO) 6.4 x10^3/uL (2.2-4.8); NEUTROPHILS % (AUTO) 71.3 % (42.0-75.0); PLATELET COUNT 225 X10^3/uL (150.0-450.0); RED BLOOD COUNT 3.55 X10^6/uL (3.5-5.4); RED CELL DISTRIBUTION WIDTH 14.2 % (11.6-16.5)
[2024-07-25 19:13] LABS: BLOOD UREA NITROGEN 21 mg/dL (7-18); CALCIUM 8.8 mg/dL (8.5-10.1); CARBON DIOXIDE 22.9 mmol/L (21-32); CHLORIDE 105 mmol/L (98-107); COR NA(FOR HYPERGLY) 141 mmol/L (136-145); CREATININE 0.65 mg/dL (0.55-1.02); GLUCOSE 218 mg/dL (65-99); POTASSIUM 3.9 mmol/L (3.5-5.1); SODIUM 138 mmol/L (136-145); eGFR NON BLACK RACES > 60 (>60)
[2024-07-25] MEDS: LR 1,000 ML IV 1,000 ML IV SCH (20:15)
[2024-07-26] MEDS ORDERED: NORCO 5/325 MG TAB PO PRN (01:22)
[2024-07-26 06:50] LABS: ALANINE AMINOTRANSFERASE 22 Units/L (12-78); ALBUMIN 2.5 g/dL (3.4-5.0); ALKALINE PHOSPHATASE 106 Units/L (46-116); ASPARTATE AMINO TRANSFERASE 21 Units/L (15-37); BLOOD UREA NITROGEN 18 mg/dL (7-18); CALCIUM 8.9 mg/dL (8.5-10.1); CHLORIDE 103 mmol/L (98-107); COR CA(FOR HYPOALB) 10.1 mg/dL (8.5-10.1); COR NA(FOR HYPERGLY) 139 mmol/L (136-145); CREATININE 0.43 mg/dL (0.55-1.02); GLUCOSE 163 mg/dL (65-99); MAGNESIUM 1.5 mg/dL (2.0-2.9); POTASSIUM 3.2 mmol/L (3.5-5.1); SODIUM 137 mmol/L (136-145); TOTAL PROTEIN 6.5 g/dL (6.4-8.2); eGFR NON BLACK RACES > 60 (>60)
[2024-07-26] MEDS: GLUCOPHAGE PO SCH (07:31)
[2024-07-26] MEDS ORDERED: CONSULT PHARMACY - POTASSIUM & MAGNESIUM XX SCH (08:00)
[2024-07-26] MEDS: NS IV NR (08:54)
[2024-07-26] MEDS: POTASSIUM CHLORIDE IV NR (08:54)
[2024-07-26] MEDS ORDERED: VITAMIN D (1.25MG) PO SCH (09:00)
[2024-07-26] MEDS: LR 1,000 ML IV 1,000 ML with MAGNESIUM SULFATE 50% INJ VIAL 1 G IV SCH (09:01)
[2024-07-26] MEDS: COREG TAB 6.25 MG PO SCH (09:10)
[2024-07-26] MEDS: NS 1,000 ML IV 1,000 ML ONE (09:36)
--- NOTE | 2024-07-26 09:42 | DR.H&P ---
H&P History & Physical for Day of: H&P Date: 07/25/24 Chief Complaint Chief Complaint: gangrenous changes right foot History of Present Illness History of Present Illness: This is a 84 year old female currently resident of [facility] who has been treated for ischemic right leg twice which has failed. Patient now admitted with continuing gangrenous changes the right foot. She will require above knee amputation. I have discussed this with her family and they agree. Patient does not participate in history or physical exam . Past Medical History Past Medical History: CVA (TIAs actually), Depression, Diabetes and Renal Disease Additional Medical History: Hx of breast cancer, Hx of stomach cancer and both have had surgery Past Surgical History Surgical History: Abdominal Surgery and Mastectomy Family History Family Medical History: Diabetes Mellitus and Cancer Social History Does patient currently use any type of tobacco product: No Type of Tobacco Use: None Alcohol Use: None Drug Use: None Medications Home Medications: Home Medications Medication Instructions Recorded Confirmed Type ascorbic acid (vitamin C) 500 mg 500 mg PO QDAY 06/06/24 07/25/24 History tablet (Vitamin C) atorvastatin 80 mg tablet 80 mg PO QDAY 06/06/24 07/25/24 History carvedilol 6.25 mg tablet 6.25 mg PO BID 06/06/24 07/25/24 History cholecalciferol (vitamin D3) 1,250 1,250 mcg PO QWEEK 06/06/24 07/25/24 History mcg (50,000 unit) capsule cyanocobalamin (vitamin B-12) 1,000 mcg subcut QWEEK 06/06/24 07/25/24 History 1,000 mcg/mL injection kit diclofenac sodium 1 % topical gel 4 g topical QID 06/06/24 07/25/24 History donepezil 10 mg tablet 10 mg PO QHS 06/06/24 07/25/24 History duloxetine 20 mg capsule,delayed 20 mg PO QDAY 06/06/24 07/25/24 History release famotidine 20 mg tablet 20 mg PO QHS 06/06/24 07/25/24 History ferrous sulfate 325 mg (65 mg 325 mg PO BID 06/06/24 07/25/24 History iron) tablet hydrocodone 5 mg-acetaminophen 325 0.5 tab PO TID PRN 06/06/24 07/25/24 History mg tablet insulin lispro 100 unit/mL See Rx Instructions .Route .COMPLEX 06/06/24 07/25/24 History subcutaneous pen (Humalog KwikPen (U-100) Insulin) lorazepam 0.5 mg tablet 0.5 mg PO QHS 06/06/24 07/25/24 History megestrol 40 mg tablet 40 mg PO BID 06/06/24 07/25/24 History metformin 1,000 mg tablet 1,000 mg PO BID 06/06/24 07/25/24 History methenamine hippurate 1 gram tablet 1 g PO BID 06/06/24 07/25/24 History mv-mn-folic 200 mcg-vit K 15 1 cap PO DAILY 06/06/24 07/25/24 History mcg-lutein 5 mg-zeaxanthin 1 mg capsule (PreserVision AREDS 2 Plus Multivit) potassium chloride 10 mEq 10 meq PO QDAY 06/06/24 07/25/24 History tablet,extended release(part/cryst) ropinirole 0.25 mg tablet 0.25 mg PO QHS 06/06/24 07/25/24 History topiramate 200 mg tablet 200 mg PO BID 06/06/24 07/25/24 History zinc 50 mg tablet 50 mg PO QDAY 06/06/24 07/25/24 History Allergies Allergies Allergy/AdvReac Type Severity Reaction Status Date / Time ciprofloxacin [Cipro] Allergy Unknown Verified 03/07/22 13:15 coconut Allergy Unknown Verified 06/06/24 12:28 gatifloxacin [Tequin] Allergy Unknown Verified 03/07/22 13:15 lettuce Allergy Unknown Verified 06/06/24 12:28 levofloxacin [Levaquin] Allergy Unknown Verified 03/07/22 13:15 onion Allergy Unknown Verified 06/06/24 12:28 pineapple Allergy Unknown Verified 06/06/24 12:28 strawberry Allergy Unknown Verified 03/07/22 13:16 Labs 07/25/24 18:00 07/26/24 05:33 Labs: Laboratory WBC 9.0 X10^3/uL (3.6-10.0) 07/25/24 18:00 RBC 3.55 X10^6/uL (3.5-5.4) 07/25/24 18:00 Hgb 11.9 g/dL (12.0-16.0) L 07/25/24 18:00 Hct 34.7 % (36.0-47.0) L 07/25/24 18:00 MCV 97.5 fL (80.0-100.0) 07/25/24 18:00 MCH 33.4 pg (27.0-34.0) 07/25/24 18:00 MCHC 34.3 g/dL (33.0-35.0) 07/25/24 18:00 RDW 14.2 % (11.6-16.5) 07/25/24 18:00 Plt Count 225 X10^3/uL (150.0-450.0) 07/25/24 18:00 MPV 8.7 fL (7.4-11.0) 07/25/24 18:00 Neut % (Auto) 71.3 % (42.0-75.0) 07/25/24 18:00 Lymph % (Auto) 21.5 % (21.0-51.0) 07/25/24 18:00 [place] % (Auto) 5.5 % (0.0-13.0) 07/25/24 18:00 Eos % (Auto) 1.1 % (0.9-2.9) 07/25/24 18:00 Baso % (Auto) 0.6 % (0.2-1.0) 07/25/24 18:00 Neut # (Auto) 6.4 x10^3/uL (2.2-4.8) H 07/25/24 18:00 Lymph # (Auto) 1.9 X10^3/uL (1.3-2.9) 07/25/24 18:00 [place] # (Auto) 0.5 x10^3/uL (0.3-0.8) 07/25/24 18:00 Eos # (Auto) 0.1 x10^3/uL (0.0-0.2) 07/25/24 18:00 Baso # (Auto) 0.1 X10^3/uL (0.0-0.1) 07/25/24 18:00 Absolute Nucleated RBC 0.0 /100WBC 07/25/24 18:00 Sodium 137 mmol/L (136-145) 07/26/24 05:33 Corrected Sodium 139 mmol/L (136-145) 07/26/24 05:33 Potassium 3.2 mmol/L (3.5-5.1) L 07/26/24 05:33 Chloride 103 mmol/L (98-107) 07/26/24 05:33 Carbon Dioxide 21.0 mmol/L (21-32) 07/26/24 05:33 BUN 18 mg/dL (7-18) 07/26/24 05:33 Creatinine 0.43 mg/dL (0.55-1.02) L 07/26/24 05:33 Est GFR (MDRD) Af Amer > 60 (>60) 07/26/24 05:33 Est GFR (MDRD) Non-Af > 60 (>60) 07/26/24 05:33 Glucose 163 mg/dL (65-99) H 07/26/24 05:33 POC Glucose (mg/dL) 173 mg/dL (65-99) H 07/26/24 05:16 Calcium 8.9 mg/dL (8.5-10.1) 07/26/24 05:33 Corrected Calcium 10.1 mg/dL (8.5-10.1) 07/26/24 05:33 Magnesium 1.5 mg/dL (2.0-2.9) L 07/26/24 05:33 Total Bilirubin 0.50 mg/dL (0.2-1.0) 07/26/24 05:33 AST 21 Units/L (15-37) 07/26/24 05:33 ALT 22 Units/L (12-78) 07/26/24 05:33 Alkaline Phosphatase 106 Units/L (46-116) 07/26/24 05:33 Total Protein 6.5 g/dL (6.4-8.2) 07/26/24 05:33 Albumin 2.5 g/dL (3.4-5.0) L 07/26/24 05:33 Globulin 4.0 g/dL (2.5-4.5) 07/26/24 05:33 Albumin/Globulin Ratio 0.6 Ratio (1.1-2.1) L 07/26/24 05:33 Review of Systems Constitutional: See HPI Eyes: No Symptoms Reported ENT: No Symptoms Reported Respiratory: No Symptoms Reported Cardiovascular: No Symptoms Reported Gastrointestinal: No Symptoms Reported Genitourinary: No Symptoms Reported Musculoskeletal: See HPI Skin: See HPI Neurological: See HPI Physical Exam Vital Signs: Vital Signs Temperature 97.9 F Temperature 97.9 F Pulse Rate [Right Brachial] 85 Pulse Rate [Right Brachial] 96 Respiratory Rate 19 Respiratory Rate 20 Blood Pressure [Right Arm] 146/75 Blood Pressure [Right Arm] 139/90 O2 Sat by Pulse Oximetry 97 O2 Sat by Pulse Oximetry 98 Oriented: Not Oriented Eyes: Normal Ear: Normal Nose: Normal Throat: Normal Respiratory: Clear Throughout : Normal Auscultation: Bowel Sounds: Normal Palpation: Normal Skin: Other (gangrenous changes right foot , mild contrature left foot ) Psychiatric: Agitation and Other (not conversant ) Mood Description: Withdrawn Affect: Anxious Speech Pattern: Unable to speak Assessment/Plan (1) Atherosclerosis of [place] arteries of extremities with rest pain, left leg: Status: Acute Plan: stable for now (2) Atherosclerosis of [place] arteries of extremities with rest pain, right leg: Status: Acute Plan: discussed right above knee amputation with her son who agrees
[2024-07-26] MEDS: CYMBALTA PO SCH (09:47)
[2024-07-26] MEDS: ANCEF VIAL 1 GRAM ONE (09:47)
[2024-07-26] MEDS: FENTANYL VIAL INJ 100 mcg ONE (09:47)
[2024-07-26] MEDS: FERROUS GLUCONATE PO SCH (09:47)
[2024-07-26] MEDS: XARELTO PO SCH (09:47)
[2024-07-26] MEDS: LANTUS SC SCH (09:47)
[2024-07-26] MEDS: NS 100 ML IV 100 ML ONE (09:47)
[2024-07-26] MEDS: DIPRIVAN VIAL 20 ML ONE (09:47)
[2024-07-26] MEDS: VITAMIN C PO SCH (09:48)
[2024-07-26] MEDS: ZINC SULFATE PO SCH (09:48)
[2024-07-26] MEDS: TOPAMAX TAB 100 MG PO SCH (09:48)
[2024-07-26] MEDS: MEGACE PO SCH (09:50)
[2024-07-26] MEDS: KLOR-CON 10 MEQ TAB PO SCH (09:50)
[2024-07-26] MEDS ORDERED: MAG-OX TAB PO SCH (10:00)
[2024-07-26] MEDS: PEPCID 20 MG VIAL ONE (10:03)
[2024-07-26] MEDS: EPHEDRINE SULFATE INJ ONE (10:07)
[2024-07-26] MEDS ORDERED: BARHEMSYS INJ IVP PRN (10:42)
[2024-07-26] MEDS ORDERED: BENADRYL INJ 50 MG VIAL IVP PRN (10:42)
[2024-07-26] MEDS ORDERED: DILAUDID INJ IVP PRN ×2 (10:42→10:59)
[2024-07-26] MEDS ORDERED: ZOFRAN INJ 4 MG VIAL IVP PRN (10:42)
[2024-07-26] MEDS ORDERED: REGLAN INJ 10 MG VIAL IVP PRN (10:42)
--- NOTE | 2024-07-26 10:57 | OR.IMMED ---
IMMEDIATE POST-OP NOTE Immediate Post-Op Note Date of surgery/procedure: 07/26/24 Pre-Op Diagnosis: gangrenous right foot Post-Op Diagnosis: same Procedure: right above knee amputation Description of Procedure: dictated Surgeon/Spring Fitter Helper: Rowena Findings: as above Estimated Blood Loss: 200 c Complications: none Discharge Progress Notes: taken to PACU in stable condition, to floor when read, case discussed with her son by phone
[2024-07-26] MEDS ORDERED: K-DUR TAB 20 MEQ PO SCH (11:00)
[2024-07-26] MEDS: PERCOCET TAB 5/325 MG PO PRN (14:27)
[2024-07-26] MEDS ORDERED: GLUCOPHAGE ONE (16:42)
[2024-07-26] MEDS: HumaLOG SC PRN (17:27)
[2024-07-26] MEDS ORDERED: SNACK - Diabetic Appropriate PO SCH (20:00)
[2024-07-26] MEDS: PEPCID TAB 20 MG PO SCH (21:28)
[2024-07-26] MEDS: ARICEPT TAB 10 MG PO SCH (21:29)
[2024-07-26] MEDS: LIPITOR TAB 80 MG PO SCH (21:29)
[2024-07-26] MEDS: REQUIP PO SCH (21:29)
[2024-07-26] MEDS: SNACK - Diabetic Appropriate PO SCH (22:25)
[2024-07-27 06:33] LABS: BASOPHILS # (AUTO) 0.1 X10^3/uL (0.0-0.1); BASOPHILS % (AUTO) 0.8 % (0.2-1.0); EOSINOPHILS # (AUTO) 0.1 x10^3/uL (0.0-0.2); EOSINOPHILS % (AUTO) 0.8 % (0.9-2.9); HEMATOCRIT 29.5 % (36.0-47.0); HEMOGLOBIN 10.4 g/dL (12.0-16.0); LYMPHOCYTES # (AUTO) 2.9 X10^3/uL (1.3-2.9); LYMPHOCYTES % (AUTO) 33.5 % (21.0-51.0); MEAN CORPUSCULAR HEMOGLOBIN 33.9 pg (27.0-34.0); MEAN CORPUSCULAR HGB CONC 35.2 g/dL (33.0-35.0); MEAN CORPUSCULAR VOLUME 96.2 fL (80.0-100.0); MONOCYTES # (AUTO) 0.5 x10^3/uL (0.3-0.8); MONOCYTES % (AUTO) 6.3 % (0.0-13.0); NEUTROPHILS # (AUTO) 5.1 x10^3/uL (2.2-4.8); NEUTROPHILS % (AUTO) 58.6 % (42.0-75.0); PLATELET COUNT 216 X10^3/uL (150.0-450.0); RED BLOOD COUNT 3.06 X10^6/uL (3.5-5.4); RED CELL DISTRIBUTION WIDTH 14.2 % (11.6-16.5); WHITE BLOOD COUNT 8.6 X10^3/uL (3.6-10.0)
[2024-07-27 06:40] LABS: MAGNESIUM 1.7 mg/dL (2.0-2.9); POTASSIUM 3.4 mmol/L (3.5-5.1)
--- NOTE | 2024-07-27 10:48 | W.DIS.FURT ---
Summary of Discharge Discharge Summary of Date Date of Exam: 07/27/24 Admission Date Date of Admission: 07/25/24 Admission Diagnosis Hospital Course: 84 year old female who is currently a resident of a [facility] who has failed arterial intervention of the right leg twice. 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 She will be discharged back on her usual medications and f/u with me in 2 weeks. Vital Signs: Vital Signs (72 hours) 07/25/24 19:00 07/25/24 20:00 07/25/24 19:00 Temperature 97.6 F Pulse Rate Pulse Rate [Right Brachial] 95 H Respiratory Rate 18 Blood Pressure Blood Pressure [Right Arm] 119/72 O2 Sat by Pulse Oximetry 100 Oxygen Delivery Method Room Air Room Air Room Air 07/26/24 00:00 07/26/24 04:00 07/26/24 07:00 Temperature 98.7 F 97.9 F Pulse Rate Pulse Rate [Right Brachial] 88 96 H Respiratory Rate 16 20 Blood Pressure Blood Pressure [Right Arm] 188/85 139/90 O2 Sat by Pulse Oximetry 98 98 Oxygen Delivery Method Room Air Room Air Room Air 07/26/24 14:27 07/26/24 08:00 07/26/24 10:48 Temperature 97.9 F 97.0 F L Pulse Rate 84 Pulse Rate [Right Brachial] 85 Respiratory Rate 18 19 18 Blood Pressure 162/81 Blood Pressure [Right Arm] 146/75 O2 Sat by Pulse Oximetry 97 98 Oxygen Delivery Method Room Air Aerosol Face Tent 07/26/24 11:03 07/26/24 11:08 07/26/24 11:13 Temperature Pulse Rate 79 81 83 Pulse Rate [Right Brachial] Respiratory Rate 18 16 16 Blood Pressure 167/77 165/82 169/82 Blood Pressure [Right Arm] O2 Sat by Pulse Oximetry 100 100 100 Oxygen Delivery Method Aerosol Face Tent Nasal Cannula Nasal Cannula 07/26/24 10:53 07/26/24 10:58 07/26/24 11:18 Temperature Pulse Rate 83 81 79 Pulse Rate [Right Brachial] Respiratory Rate 16 16 16 Blood Pressure 165/81 161/76 167/77 Blood Pressure [Right Arm] O2 Sat by Pulse Oximetry 100 100 100 Oxygen Delivery Method Aerosol Face Tent Aerosol Face Tent Nasal Cannula 07/26/24 11:30 07/26/24 11:45 07/26/24 12:00 Temperature 97.9 F 98.2 F Pulse Rate Pulse Rate [Right Brachial] 77 81 81 Respiratory Rate 18 18 18 Blood Pressure Blood Pressure [Right Arm] 176/80 167/79 166/86 O2 Sat by Pulse Oximetry 97 97 100 Oxygen Delivery Method 07/26/24 12:15 07/26/24 12:30 07/26/24 13:30 Temperature 98.3 F 98.2 F 98.4 F Pulse Rate Pulse Rate [Right Brachial] 86 87 88 Respiratory Rate 18 18 16 Blood Pressure Blood Pressure [Right Arm] 158/74 157/74 153/70 O2 Sat by Pulse Oximetry 100 100 100 Oxygen Delivery Method 07/26/24 14:30 07/26/24 20:11 07/26/24 19:00 Temperature 97.9 F Pulse Rate Pulse Rate [Right Brachial] 95 H Respiratory Rate 18 22 Blood Pressure Blood Pressure [Right Arm] 170/81 O2 Sat by Pulse Oximetry 100 Oxygen Delivery Method Room Air 07/26/24 20:00 07/26/24 21:11 07/27/24 00:00 Temperature 99.3 F 97.9 F Pulse Rate Pulse Rate [Right Brachial] 80 74 Respiratory Rate 22 22 20 Blood Pressure Blood Pressure [Right Arm] 132/65 118/60 O2 Sat by Pulse Oximetry 100 98 Oxygen Delivery Method Room Air Room Air 07/27/24 04:00 Temperature 99.6 F Pulse Rate Pulse Rate [Right Brachial] 89 Respiratory Rate 21 Blood Pressure Blood Pressure [Right Arm] 111/59 O2 Sat by Pulse Oximetry 99 Oxygen Delivery Method Room Air Labs: Laboratory Last Values WBC 8.6 X10^3/uL (3.6-10.0) 07/27/24 05:49 RBC 3.06 X10^6/uL (3.5-5.4) L 07/27/24 05:49 Hgb 10.4 g/dL (12.0-16.0) L 07/27/24 05:49 Hct 29.5 % (36.0-47.0) L 07/27/24 05:49 MCV 96.2 fL (80.0-100.0) 07/27/24 05:49 MCH 33.9 pg (27.0-34.0) 07/27/24 05:49 MCHC 35.2 g/dL (33.0-35.0) H 07/27/24 05:49 RDW 14.2 % (11.6-16.5) 07/27/24 05:49 Plt Count 216 X10^3/uL (150.0-450.0) 07/27/24 05:49 MPV 9.0 fL (7.4-11.0) 07/27/24 05:49 Neut % (Auto) 58.6 % (42.0-75.0) 07/27/24 05:49 Lymph % (Auto) 33.5 % (21.0-51.0) 07/27/24 05:49 Catron % (Auto) 6.3 % (0.0-13.0) 07/27/24 05:49 Eos % (Auto) 0.8 % (0.9-2.9) L 07/27/24 05:49 Baso % (Auto) 0.8 % (0.2-1.0) 07/27/24 05:49 Neut # (Auto) 5.1 x10^3/uL (2.2-4.8) H 07/27/24 05:49 Lymph # (Auto) 2.9 X10^3/uL (1.3-2.9) 07/27/24 05:49 Catron # (Auto) 0.5 x10^3/uL (0.3-0.8) 07/27/24 05:49 Eos # (Auto) 0.1 x10^3/uL (0.0-0.2) 07/27/24 05:49 Baso # (Auto) 0.1 X10^3/uL (0.0-0.1) 07/27/24 05:49 Absolute Nucleated RBC 0.0 /100WBC 07/27/24 05:49 Sodium 137 mmol/L (136-145) 07/26/24 05:33 Corrected Sodium 139 mmol/L (136-145) 07/26/24 05:33 Potassium 3.4 mmol/L (3.5-5.1) L 07/27/24 05:49 Chloride 103 mmol/L (98-107) 07/26/24 05:33 Carbon Dioxide 21.0 mmol/L (21-32) 07/26/24 05:33 BUN 18 mg/dL (7-18) 07/26/24 05:33 Creatinine 0.43 mg/dL (0.55-1.02) L 07/26/24 05:33 Est GFR (MDRD) Af Amer > 60 (>60) 07/26/24 05:33 Est GFR (MDRD) Non-Af > 60 (>60) 07/26/24 05:33 Glucose 163 mg/dL (65-99) H 07/26/24 05:33 POC Glucose (mg/dL) 125 mg/dL (65-99) H 07/27/24 05:30 Calcium 8.9 mg/dL (8.5-10.1) 07/26/24 05:33 Corrected Calcium 10.1 mg/dL (8.5-10.1) 07/26/24 05:33 Magnesium 1.7 mg/dL (2.0-2.9) L 07/27/24 05:49 Total Bilirubin 0.50 mg/dL (0.2-1.0) 07/26/24 05:33 AST 21 Units/L (15-37) 07/26/24 05:33 ALT 22 Units/L (12-78) 07/26/24 05:33 Alkaline Phosphatase 106 Units/L (46-116) 07/26/24 05:33 Total Protein 6.5 g/dL (6.4-8.2) 07/26/24 05:33 Albumin 2.5 g/dL (3.4-5.0) L 07/26/24 05:33 Globulin 4.0 g/dL (2.5-4.5) 07/26/24 05:33 Albumin/Globulin Ratio 0.6 Ratio (1.1-2.1) L 07/26/24 05:33 Reason For Visit: RIGHT LOWER EXT [place] Discharge Date Discharge Date: 07/27/24 Discharge Diagnosis All Active Problems (Updated 06/06/24 @ 13:12 by Bryan Guaman) Gastroparesis (Acute) Anxiety (Acute) Personal history of malignant neoplasm of stomach (Acute) Personal history of breast cancer (Acute) Type 2 diabetes mellitus without complications (Acute) Atherosclerosis of [place] arteries of extremities with rest pain, left leg (Acute) Atherosclerosis of [place] arteries of extremities with rest pain, right leg (Acute) Plan of Treatment: Continue with present treatment and follow up plan. Pt is to keep follow up appointment as instructed and take medications as ordered. Discharge Medications Discharge Medications: ciporfloxicin coconut Allergy (Unknown, Verified 06/06/24 12:28) gatifloxacin [Tequin] Allergy (Unknown, Verified 03/07/22 13:15) lettuce Allergy (Unknown, Verified 06/06/24 12:28) levofloxacin [Levaquin] Allergy (Unknown, Verified 03/07/22 13:15) onion Allergy (Unknown, Verified 06/06/24 12:28) pineapple Allergy (Unknown, Verified 06/06/24 12:28) strawberry Allergy (Unknown, Verified 03/07/22 13:16) Discharge Disposition Assessment: see hospital course Discharge Plan Discharge Plan Hospital Course: 84 year old female who is currently a resident of a [facility] who has failed arterial intervention of the right leg twice. 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 She will be discharged back on her usual medications and f/u with me in 2 weeks. Patient Disposition: SNF Condition: Stable Health Concerns: Post Hospitalization: new medications and changes needed to prevent readmission or further decline. Pt educated and given instructions on all concerns. Care Plan Goals: Problem: Pain/Alteration in Comfort Goal: Improve/ Resolve Pain; Achieve Pain Tolerance Instructions: Take pain medications as prescribed. Contact your primary care provider if your pain is unrelieved or worsens. Follow up with primary care provider as directed. Plan of Treatment: Continue with present treatment and follow up plan. Pt is to keep follow up appointment as instructed and take medications as ordered. Assessment: see hospital course Prescription drug monitoring program results: PDMP was not reviewed Prescriptions: Continued Xarelto 2.5 mg tablet 2.5 mg PO BID Qty: 90 3RF atorvastatin 80 mg tablet 80 mg PO QDAY carvedilol 6.25 mg tablet 6.25 mg PO BID hydrocodone-acetaminophen 5-325 mg tablet 0.5 tab PO TID PRN donepezil 10 mg tablet 10 mg PO QHS famotidine 20 mg tablet 20 mg PO QHS lorazepam 0.5 mg tablet 0.5 mg PO QHS ropinirole 0.25 mg tablet 0.25 mg PO QHS metformin 1,000 mg tablet 1,000 mg PO BID megestrol 40 mg tablet 40 mg PO BID topiramate 200 mg tablet 200 mg PO BID insulin lispro [Humalog KwikPen Insulin] 100 unit/mL insulin pen See Rx Instructions .ROUTE .COMPLEX Patient Comments: [NO ORIGINAL SIG] Rx Instructions: Inject as per sliding scale : if 0-59 = 0 responsive=give instaglucose tabs or gel; unresponsive=Glucagen IM. Notifprice PORTILLO.; 60-180 = 0 181-220 = 4 221-260 = 6 261-300 = 8 301-350 = 10 351-400 = 12 401-1000 = 12; Notifprice PORTILLO subcutaneously four time a day for DM duloxetine 20 mg capsule,delayed release(DR/EC) 20 mg PO QDAY methenamine hippurate 1 gram tablet 1 g PO BID ascorbic acid (vitamin C) [Vitamin C] 500 mg Tablet 500 mg PO QDAY ferrous sulfate 325 mg (65 mg iron) Tablet 325 mg PO BID zinc 50 mg Tablet 50 mg PO QDAY potassium chloride 10 mEq tablet,ER particles/crystals 10 meq PO QDAY cholecalciferol (vitamin D3) 1,250 mcg (50,000 unit) Capsule 1,250 mcg PO QWEEK Rx Instructions: EVERY THURSDAY diclofenac sodium [Voltaren] 1 % Gel 4 g TOPICAL QID Rx Instructions: apply to BILATERAL KNEES cyanocobalamin (vitamin B-12) 1,000 mcg/mL Kit 1,000 mcg SUBCUT QWEEK Rx Instructions: ON THURSDAY PreserVision AREDS 2 Plus MV 200 mcg-15 mcg- 5 mg-1 mg Capsule 1 cap PO DAILY Orders to Discharge Patient Discharge Orders: Discharge (Routine); Ordered 07/27/24 Ordered By: Bryan Guaman Follow ups/Referrals Follow ups/Referrals: Bryan Guaman [Primary Care Provider] - 08/08/24 2:30 pm Instructions Instructions: Stump and Prosthesis Care, Living With an Amputation, Phantom Limb Pain, Gangrene Stand Alone Forms: Excuse From Work or School, Find Help Web Site, Post Hospital Follow Up Care
[2024-07-27 11:12] VITALS: RESP 18
[2024-07-27] MEDS: GLUCOPHAGE ONE (11:15)
[2024-07-27] MEDS: ZINC SULFATE PO SCH (11:20)
[2024-07-27] MEDS: CYMBALTA PO SCH (11:20)
[2024-07-27 13:34] VITALS: BP 138/65; PULSE 98; TEMP 99; O2SAT 99
--- NOTE | 2024-07-27 14:44 | DR.OPNOTE ---
OP NOTE Pre-Op Diagnosis: Gangrenoius left foot Post-Op Diagnosis: same Procedure Date Date Of Procedure: 07/26/24 Procedure: PROCEDURE : LEFT ABOVE KNEE AMPUTATION NARRATIVE : The patient was taken to the operative suite and placed in the supine position. General anesthesia induced down the entire left leg prepped and draped in sterile fashion. Time out for the procedure obtained. A fish mouthed incision was made 1 hands breathe above the patella and electrocautery used to divide the quadricep muscles . Dissection carried out in the medial compartment and the femoral artery and vein vein divided between suture ligatures of 2-0 silk.Periosteum elevated off of the femur. Femur divided with Giggli saw. Amputation knife usedtom complete the operation. All bleeding vessels cauterized with electrocautery . The 2 flaps approximated with interrupted 0 Vicryl sutures and the skin closed withj skin aples. Dressing applied and the patient tolerated this well. Anesthesia Comment: general Findings: as above Specimen/Pathology: left leg Type of Fluids Used:: Lactated Ringers Total Amount of Fluid Infused:: 350 cc EBL: 200cc Complications:: none Needle/Sponge Count:: correct Disposition/Condition: Pt. tolerated procedure without difficulty. Taken to floor in stable condition.
== END 2024-07-27 12:15 ==
LOC: MED/SURG
PROVIDERS: ADMIT Surgery; ATTEND Surgery
DX: I96 Gangrene, not elsewhere classified; Z66 Do not resuscitate; Z60.8 Other problems related to social environment; E83.42 Hypomagnesemia; I70.223 Atherosclerosis of native arteries of extremities with rest pain, bilateral legs; E11.65 Type 2 diabetes mellitus with hyperglycemia